=== PATIENT | female | born 1990 | race Caucasian/White ===

== ENCOUNTER 2018-12-20 18:13 | Emergency (ER) | payer OTHER, SELFPAY ==
[2018-12-20 18:14] VITALS: BP 133/83; PULSE 78; RESP 14; TEMP 36.9; O2SAT 100; BMI 23.3
--- NOTE | 2018-12-20 20:24 | ED.VIS.GEN ---
History of Present Illness Chief Complaint: Vag Bleeding Informant: Patient Onset: Month(s) - 1 Context: Gradual Onset Timing: Continuous Quality: like a menstrual cycle Location: pelvic Current Severity: Moderate Maximum Severity: Moderate Worsened by: nothing Relieved by: nothing Associated Symptoms: pelvic cramping, dizzy Narrative: Patient states she has a history of endometriosis that was seen on laparoscopy, she is scheduled to see her attic fans mechanic and have another laparoscopy she thinks, she has had bleeding for the past month and cramping during this as well, mild headaches off and on, no nausea or vomiting or loss of consciousness but she has increasingly become tired and lightheaded especially with standing. Lightheadedness is better when she sits or lies down. This occurred at work today and she was advised to come to the emergency department for evaluation. She denies bleeding from anywhere else. She has been eating and drinking well. - Past Medical History (1) Endometriosis Status: Chronic Past Medical History - Allergies and Home Meds Allergies/Adverse Reactions: Allergies No Known Allergies Allergy (Verified 12/20/18 18:16) Primary Care Physician: [facility] Doctor,Out of [NON-STAFF] - Smoking Status: Current every day smoker Drugs: None Review of Systems General: Reports: Malaise. Denies: Chills, Fever Eyes: Denies: Visual changes - bilaterally, Diplopia ENT: Denies: Rhinorrhea, Sore throat Cardiovascular: Denies: Chest pain, Palpitations, Heart racing Respiratory: Denies: Dyspnea, Cough, Dyspnea on exertion Gastrointestinal: Reports: Abdominal pain. Denies: Nausea, Vomiting, Diarrhea, Melena, Hematochezia Genitourinary: Reports: - - vaginal bleeding. Denies: Dysuria, Hematuria, Frequency Musculoskeletal: Reports: Back pain - low back when increased abd-pelv cramping. Denies: Neck pain, Extremity Pain Skin: Denies: Rash, Wounds Neurological: Denies: Headache, Weakness, Numbness Physical Exam Vital Signs/Narrative: Vital Signs Temp Pulse Resp BP Pulse Ox 12/20/18 18:14 98.5 F 78 14 133/83 H 100 Inital Vital Signs reviewed: Yes General: Well nourished, Well developed, No Acute Distress Head: Normocephalic, Atraumatic Eyes: Perrl, EOMI ENT: Moist mucous membranes, No rhinorrhea Neck: Supple, Nontender Cardiovascular: Regular rate, Regular rhythm, No murmurs. Negative for: Tachycardia Respiratory: No distress, CTA bilaterally, Chest nontender Abdomen: Soft, Nondistended, Normal bowel sounds, Tender - across pelvis, nonlateralizing. Negative for: Guarding, Rebound tenderness Back: Nontender, Normal Inspection. Negative for: CVA tenderness Extremities: Nontender, No edema Skin: Normal color, No rash, No Trauma Neurological: Alert, Oriented x3, Cranial nerves II-XII grossly intact, Normal Strength, Normal Sensation Diagnostic/Tx/Re-eval Laboratory Tests 12/20/18 12/20/18 12/20/18 Range/Units 20:37 20:37 20:37 WBC 6.5 (4.4-11.0) K/mm3 RBC 4.22 (4.2-5.4) M/mm3 Hgb 12.1 (12.0-15.0) g/dl Hct 36.5 L (37-47) % MCV 86.5 (81-99) fL MCH 28.7 (27.0-32.0) pg MCHC 33.2 (32-36) g/gl RDW 13.4 (11.6-14.6) % RDW Differential 42.3 (35.1-43.9) fl Plt Count 253 (150-450) K/mm3 MPV 9.6 (6.2-12.0) fl Sodium 139 (136-145) mmol/L Potassium 3.7 (3.5-5.1) mmol/L Chloride 106 (98-107) mmol/L Carbon Dioxide 27.0 (21.0-32.0) mmol/L Anion Gap 6 (5-15) BUN 8 (7-18) mg/dL Creatinine 0.63 (0.55-1.02) mg/dL Estim Creat Clear Calc 97.20 ml/min Est GFR (MDRD) Af Amer 146 (>60) mL/min Est GFR (MDRD) Non-Af 121 (>60) mL/min BUN/Creatinine Ratio 12.7 (10-20) RATIO Glucose 77 (74-106) mg/dL Calcium 8.7 (8.5-10.1) mg/dL Serum , Qual NEGATIVE Negative - Medical Decision Making Labs show reassuring blood counts. Her is negative. She has borderline positive orthostatics if she was given a liter of fluid, she is feeling well and stable, using her cell phone on reevaluation. Advised that if she has days of heavy bleeding she needs to drink more fluids. Discharged home in stable improved condition and advised to follow-up with her attic fans mechanic. ED Disposition - Plan for ED Patient: Disposition: Home or Assisted Living Diagnosis: Dysfunctional uterine bleeding, Endometriosis, Pelvic pain Instructions: ED Bleed Irregular Vaginal Referrals: [facility],Out of [NON-STAFF] - 5-7 Days (your attic fans mechanic)
--- NOTE | 2018-12-20 20:27 | ED.DCSUM_ITS ---
History of Present Illness Chief Complaint: Vag Bleeding Informant: Patient Onset: Month(s) - 1 Context: Gradual Onset Timing: Continuous Quality: like a menstrual cycle Location: pelvic Current Severity: Moderate Maximum Severity: Moderate Worsened by: nothing Relieved by: nothing Associated Symptoms: pelvic cramping, dizzy Narrative: Patient states she has a history of endometriosis that was seen on laparoscopy, she is scheduled to see her fruit dumper and have another laparoscopy she thinks, she has had bleeding for the past month and cramping during this as well, mild headaches off and on, no nausea or vomiting or loss of consciousness but she has increasingly become tired and lightheaded especially with standing. Lightheadedness is better when she sits or lies down. This occurred at work today and she was advised to come to the emergency department for evaluation. She denies bleeding from anywhere else. She has been eating and drinking well. - Past Medical History (1) Endometriosis Status: Chronic Past Medical History - Allergies and Home Meds Allergies/Adverse Reactions: Allergies No Known Allergies Allergy (Verified 12/20/18 18:16) Primary Care Physician: [facility] Doctor,Out of [NON-STAFF] - Smoking Status: Current every day smoker Drugs: None Review of Systems General: Reports: Malaise. Denies: Chills, Fever Eyes: Denies: Visual changes - bilaterally, Diplopia ENT: Denies: Rhinorrhea, Sore throat Cardiovascular: Denies: Chest pain, Palpitations, Heart racing Respiratory: Denies: Dyspnea, Cough, Dyspnea on exertion Gastrointestinal: Reports: Abdominal pain. Denies: Nausea, Vomiting, Diarrhea, Melena, Hematochezia Genitourinary: Reports: - - vaginal bleeding. Denies: Dysuria, Hematuria, Frequency Musculoskeletal: Reports: Back pain - low back when increased abd-pelv cramping. Denies: Neck pain, Extremity Pain Skin: Denies: Rash, Wounds Neurological: Denies: Headache, Weakness, Numbness Physical Exam Vital Signs/Narrative: Vital Signs Temp Pulse Resp BP Pulse Ox 12/20/18 18:14 98.5 F 78 14 133/83 H 100 Inital Vital Signs reviewed: Yes General: Well nourished, Well developed, No Acute Distress Head: Normocephalic, Atraumatic Eyes: Perrl, EOMI ENT: Moist mucous membranes, No rhinorrhea Neck: Supple, Nontender Cardiovascular: Regular rate, Regular rhythm, No murmurs. Negative for: Tachycardia Respiratory: No distress, CTA bilaterally, Chest nontender Abdomen: Soft, Nondistended, Normal bowel sounds, Tender - across pelvis, non lateralizing. Negative for: Guarding, Rebound tenderness Back: Nontender, Normal Inspection. Negative for: CVA tenderness Extremities: Nontender, No edema Skin: Normal color, No rash, No Trauma Neurological: Alert, Oriented x3, Cranial nerves II-XII grossly intact, Normal Strength, Normal Sensation Diagnostic/Tx/Re-eval Laboratory Tests 12/20/18 12/20/18 12/20/18 Range/Units 20:37 20:37 20:37 WBC 6.5 (4.4-11.0) K/mm3 RBC 4.22 (4.2-5.4) M/mm3 Hgb 12.1 (12.0-15.0) g/dl Hct 36.5 L (37-47) % MCV 86.5 (81-99) fL MCH 28.7 (27.0-32.0) pg MCHC 33.2 (32-36) g/gl RDW 13.4 (11.6-14.6) % RDW Differential 42.3 (35.1-43.9) fl Plt Count 253 (150-450) K/mm3 MPV 9.6 (6.2-12.0) fl Sodium 139 (136-145) mmol/L Potassium 3.7 (3.5-5.1) mmol/L Chloride 106 (98-107) mmol/L Carbon Dioxide 27.0 (21.0-32.0) mmol/L Anion Gap 6 (5-15) BUN 8 (7-18) mg/dL Creatinine 0.63 (0.55-1.02) mg/dL Estim Creat Clear Calc 97.20 ml/min Est GFR (MDRD) Af Amer 146 (>60) mL/min Est GFR (MDRD) Non-Af 121 (>60) mL/min BUN/Creatinine Ratio 12.7 (10-20) RATIO Glucose 77 (74-106) mg/dL Calcium 8.7 (8.5-10.1) mg/dL Serum , Qual NEGATIVE Negative - Medical Decision Making Labs show reassuring blood counts. Her is negative. She has borderline positive orthostatics if she was given a liter of fluid, she is feeling well and stable, using her cell phone on reevaluation. Advised that if she has days of heavy bleeding she needs to drink more fluids. Discharged home in stable improved condition and advised to follow-up with her fruit dumper. ED Disposition - Plan for ED Patient: Disposition: Home or Assisted Living Diagnosis: Dysfunctional uterine bleeding, Endometriosis, Pelvic pain Instructions: ED Bleed Irregular Vaginal Referrals: [facility],Out of [NON-STAFF] - 5-7 Days (your fruit dumper)
[2018-12-20 20:58] LABS: Hematocrit 36.5 % (37-47); Hemoglobin 12.1 g/dl (12.0-15.0); Mean Corp Hgb Conc 33.2 g/gl (32-36); Mean Corpuscular Hgb 28.7 pg (27.0-32.0); Mean Corpuscular Volume 86.5 fL (81-99); Mean Platelet Vol. 9.6 fl (6.2-12.0); Platelet Count 253 K/mm3 (150-450); RBC Distribution Width CV 13.4 % (11.6-14.6); RBC Distribution Width SD 42.3 fl (35.1-43.9); Red Blood Count 4.22 M/mm3 (4.2-5.4); White Blood Count 6.5 K/mm3 (4.4-11.0)
[2018-12-20 20:59] VITALS: BP 106/65; BP 107/79; BP 122/80; PULSE 56; PULSE 65; PULSE 81; RESP 17; O2SAT 100
[2018-12-20 20:59] LABS: Scan Indicated on CBC? Y/N NO
[2018-12-20 21:01] LABS: Internal QC Validated? YES +Cl - CLEAR BKGD; Pregnancy, Serum, hCG Quali. NEGATIVE Negative
[2018-12-20 21:06] LABS: Anion Gap 6 (5-15); BUN 8 mg/dL (7-18); BUN/Creat Ratio 12.7 RATIO (10-20); Calcium,Total 8.7 mg/dL (8.5-10.1); Chloride 106 mmol/L (98-107); Creatinine, Serum 0.63 mg/dL (0.55-1.02); EST Glomerular Filtration Rate 121 mL/min (>60); Est Glom Filt Rate - Afr Amer 146 mL/min (>60); Glucose 77 mg/dL (74-106); Potassium 3.7 mmol/L (3.5-5.1); Sodium Level 139 mmol/L (136-145)
[2018-12-20 22:31] VITALS: BP 112/78; PULSE 67; RESP 16; O2SAT 100
[2018-12-20 23:22] VITALS: BP 111/73; PULSE 64; RESP 16; O2SAT 100
== END 2018-12-20 23:25 | disposition home or self-care (01) ==
PROVIDERS: Emergency Provider Emergency Medicine
DX: N93.8 Other specified abnormal uterine and vaginal bleeding (principal); N80.9 Endometriosis, unspecified; R10.2 Pelvic and perineal pain; F17.200 Nicotine dependence, unspecified, uncomplicated
CPT/HCPCS: 80048; 84703; 85027; 96360; 99284; J7030; J7040

== ENCOUNTER 2019-01-10 14:49 | Emergency (ER) | payer OTHER, SELFPAY ==
[2019-01-10 14:49] VITALS: BP 134/85; PULSE 88; RESP 14; TEMP 36.5; O2SAT 96; BMI 22.6
--- NOTE | 2019-01-10 15:04 | CT_ITS ---
STUDY: CT ABDOMEN AND PELVIS WITHOUT CONTRAST REASON FOR EXAM: Female, 28 years old. Left flank pain RADIATION DOSAGE (If Supplied By Facility): CTDIvol = ( 6.52 ) mGy, DLP = ( 297.13 ) mGycm TECHNIQUE: Transaxial images were obtained from the dome of the diaphragm to the symphysis pubis without oral contrast, and without intravenous contrast. Sagittal and coronal images were reconstructed. Individualized dose optimization techniques were used for this CT. COMPARISON: None. FINDINGS: The visualized lung bases are unremarkable. The visualized portions of the heart are within normal limits. Normal liver. Normal gallbladder and extrahepatic biliary system. Normal spleen. Normal pancreas. Normal bilateral adrenal glands. Normal right kidney. Normal left kidney. Normal visualized stomach. Normal small intestine. Constipation The appendix is visualized and appears normal. Normal abdominal aorta. Normal inferior vena cava. Normal retroperitoneum. Normal urinary bladder. Cystic foci are present in the bilateral pelvis, measuring 30 x 18 mm on the right on image 119 of series 1002, and 26 x 22 mm on the left on the same image. These could be ovarian and/or adnexal in origin. Consider ultrasound follow-up if clinically indicated. Normal abdominal wall. Normal osseous structures. CT/Abdomen/Pelvis without Cont IMPRESSION: Indeterminate cystic structures in the bilateral pelvis could be of ovarian or adnexal origin. Consider ultrasound follow-up if clinically indicated. No evidence of acute intestinal pathology or acute obstructive uropathy. Electronically Signed: Iván Capps MD at 16:06 EDT Tel , Service support ,
--- NOTE | 2019-01-10 15:11 | ED.VISSUMM ---
- ER Visit Summary Date of Service: 01/10/19 Chief Complaint: Pain History of Present Illness: The patient is a 28 F with lower abdominal and left flank pain. The pain started today after sexual intercourse. Patient described the pain is crampy. It came on suddenly and was severe and it has eased up since. Associated with nausea. Patient reports a history of kidney stones with similar pain. Incidentally, she was treated recently for trichomonas. She does have 2 pills left. She said she missed a few doses. No history of abscess. No discharge. No bleeding. Not currently . History of endometriosis and ovarian cysts as well. No other complaints. Physical Examination: Afebrile and vital signs unremarkable. Patient is alert and oriented. Moving, sitting, speaking comfortably. Heart regular. Lungs clear. Abdomen is tender in the left lower quadrant and left pelvic region. No CVA tenderness. Skin appears normal. Test Results: Laboratory studies, urinalysis, hCG, and CT abdomen/pelvis pending. Emergency Department Course and Treatment: Patient treated with fluids, Toradol, and Zofran while awaiting results. CT showed bilateral ovarian adnexal cysts. Blood work all fairly unremarkable. test was negative. Urinalysis unremarkable. She did have a remote history of trichomonas and gonorrhea, so I did check a pelvic exam. This was chaperoned by the nurse. There is no discharge, bleeding, masses, or tenderness. Ultrasound was done and showed a complex right ovarian cyst measuring 2.6 cm and a simple left ovarian cyst measuring 1.3 cm. I do not believe this is a tubo-ovarian abscess. The patient is not septic. Her labs are reassuring. The imaging is reassuring and the exam is reassuring. Patient was advised to follow-up with her SINGLE ENDING MACHINE OPERATOR. Anti-inflammatories for pain. Discharge. Treatment Plan: As above Disposition: As above Impression: 1. Bilateral ovarian cysts This note was generated with [employer] dictation software. It may contain incorrect words, spelling, and punctuation that were not noted in review of the chart prior to signing ED Disposition - Plan for ED Patient: Referrals: Care Physician,No Primary [Primary Care Provider] -
[2019-01-10] MEDS: Ketorolac 30 MG/ML Syringe IV (15:25)
[2019-01-10] MEDS: 0.9% Normal Saline 1,000 ML 1000 ML IV (15:25)
[2019-01-10] MEDS: Ondansetron 4 MG/2 ML Vial IV (15:25)
[2019-01-10 15:27] LABS: Absolute Lymphocyte Count 1.96 X10^3/ul (0.83-4.51); Absolute Neutrophil Count 4.1 X10^3/uL (2.0-7.7); Basophil# 0.02 X10^3/uL; Basophil% 0.3 % (0-1); Eosinophil# 0.14 X10^3/uL; Hematocrit 39.8 % (37-47); Hemoglobin 13.2 g/dl (12.0-15.0); Lymphocyte # 1.96 X10^3/ul (4.0); Lymphocyte % 28.2 % (19-41); Mean Corp Hgb Conc 33.2 g/gl (32-36); Mean Corpuscular Hgb 28.5 pg (27.0-32.0); Mean Platelet Vol. 9.7 fl (6.2-12.0); Monocyte# 0.75 X10^3/uL; Monocyte% 10.8 % (0-10); Neutrophil # 4.06 X10^3/uL (2.7-7.7); Neutrophil % 58.6 % (47-70); Platelet Count 229 K/mm3 (150-450); RBC Distribution Width CV 13.3 % (11.6-14.6); RBC Distribution Width SD 41.8 fl (35.1-43.9); Red Blood Count 4.63 M/mm3 (4.2-5.4); White Blood Count 6.9 K/mm3 (4.4-11.0)
[2019-01-10 15:30] LABS: POSITIVE COUNT NO; POSITIVE DIFFERENTIAL NO; POSITIVE MORPHOLOGY NO
[2019-01-10 15:32] LABS: Mucous, Urine 0 SEEN /hpf (<or=2+); Red Blood Cells-Urine 0 SEEN /hpf (0-5); Squamous Epithelial Cells - UA 0 SEEN /hpf (5-10); White Blood Cells 0 SEEN /hpf (0-5)
[2019-01-10 15:40] LABS: Internal QC Validated? YES +Cl - CLEAR BKGD; Pregnancy, Urine Negative Negative
[2019-01-10 15:42] LABS: Anion Gap 3 (5-15); BUN 8 mg/dL (7-18); BUN/Creat Ratio 12.3 RATIO (10-20); Calcium,Total 8.9 mg/dL (8.5-10.1); Chloride 107 mmol/L (98-107); Creatinine, Serum 0.65 mg/dL (0.55-1.02); EST Glomerular Filtration Rate 116 mL/min (>60); Est Glom Filt Rate - Afr Amer 141 mL/min (>60); Estimated Creatinine Clearance 94.21 ml/min; Glucose 89 mg/dL (74-106); Potassium 4.3 mmol/L (3.5-5.1); Sodium Level 136 mmol/L (136-145)
[2019-01-10 15:46] LABS: Color, Urine Yellow (Yellow); Glucose, Dipstick Normal (Normal); Ketone-Dipstick Negative (Negative); Leukocyte Esterase-Dipstick 25 /ul (Negative); Nitrite-Dipstick Negative (Negative); Occult Blood-Urine Negative /ul (Negative); Protein-Dipstick Negative (Negative); Urine Bilirubin Dipstick Negative (Negative); Urine Clarity Clear (Clear); Urine Urobilinogen Normal (Normal)
[2019-01-10 15:55] LABS: Bacteria RARE /hpf (None Seen)
--- NOTE | 2019-01-10 16:18 | US_ITS ---
STUDY: ULTRASOUND OF THE FEMALE PELVIS - COMPLETE REASON FOR EXAM: Female, 28 years old. Lower pelvic pain and ovary cysts LMP: 11/18/2018 TECHNIQUE: Transvaginal TECHNICAL QUALITY: Adequate. COMPARISON: CT same day FINDINGS: The uterus is anteverted and is in a midline position. The uterus measures 8.3 x 5.3 x 3.8 cm. Normal uterine cervix. The endometrium measures 5 mm in thickness, and is hyperechoic. There is no demonstrated endometrial mass. There is no demonstrated myometrial mass. I.U.D. - The patient does not have an I.U.D. The right ovary is visualized. The right ovary measures 3.4 x 3.3 x 2.7 cm. Complex cyst measuring 2.6 x 2.2 x 1.6 cm. There is no visualized right adnexal mass or complex lesion. There is normal arterial and normal venous vascularity. The left ovary is visualized. The left ovary measures 3.7 x 3.0 x 2.5 cm. Simple cyst measuring 13 x 12 x 6 mm. There is no visualized left adnexal mass or complex lesion. There is normal arterial and normal venous vascularity. There is minimal fluid in the cul-de-sac. Polycystic ovary disease: No. US/Transvaginal Non- IMPRESSION: Complex right ovary cyst measuring up to 2.6 cm. Simple left ovary cyst measuring up to 13 mm. Mild free pelvic fluid. The uterus is unremarkable. Electronically Signed: Iván Capps MD at 17:52 EDT Tel , Service support ,
[2019-01-10] MEDS: Morphine 4 MG/ML Syringe IV (17:52)
--- NOTE | 2019-01-10 18:35 | ED.DEP ---
ED Disposition - Plan for ED Patient: Instructions: ED Cyst Ovarian Prescriptions: Naproxen [Naprosyn] 500 mg PO BID PRN #20 tab Additional Instructions: follow up with your OBGYN
[2019-01-10 18:43] LABS: Chlamydia Trachomatis by PCR Negative (Negative); Neisserai gonorrhoeae by PCR Negative (Negative); Probe Check PASS; Sample Adequacy Control PASS; Specimen Processing Control PASS
== END 2019-01-10 18:50 | disposition home or self-care (01) ==
LOC: ED 15:05
PROVIDERS: Emergency Provider Emergency Medicine
DX: N83.201 Unspecified ovarian cyst, right side (principal); N83.202 Unspecified ovarian cyst, left side; Z87.442 Personal history of urinary calculi; Z72.0 Tobacco use
CPT/HCPCS: 74176; 76830; 80048; 81001; 81025; 85025; 87210; 87491; 87591; 93976; 96361; 96374; 96375; 99283; J7030; A4216; J2405

== ENCOUNTER 2020-01-30 18:58 | Inpatient (IN) | payer MEDICAID, SELFPAY ==
[2020-01-30] VITALS (17 sets, daily range): BP systolic 110–125; BP diastolic 62–84; PULSE 64–96; TEMP 36.6–37; O2SAT 98–100; BMI 25.7
[2020-01-30] MEDS: Lactated Ringers 1,000 ML 50 ML IV (19:25)
[2020-01-30] MEDS: Oxytocin 30 units/NS 500 ml 30 UNITS/500 ML IV.SOLN IV (19:44)
[2020-01-30 19:49] LABS: Absolute Lymphocyte Count 1.92 X10^3/uL (0.83-4.51); Absolute Neutrophil Count 6.7 X10^3/uL (2.0-7.7); Basophil# 0.02 X10^3/uL; Basophil% 0.2 % (0-1); Eosinophil# 0.07 X10^3/uL; Eosinophils% 0.7 % (0-5); Hematocrit 28.3 % (37-47); Lymphocyte # 1.92 X10^3/ul (4.0); Lymphocyte % 20.1 % (19-41); Mean Corp Hgb Conc 31.8 g/dL (32-36); Mean Corpuscular Hgb 27.3 pg (27.0-32.0); Mean Corpuscular Volume 85.8 fL (81-99); Mean Platelet Vol. 10.7 fl (6.2-12.0); Monocyte# 0.83 X10^3/uL; Monocyte% 8.7 % (0-10); NRBC Flagged by Analyzer 0 % (0-5); Neutrophil # 6.66 X10^3/uL (2.7-7.7); Neutrophil % 69.7 % (47-70); Platelet Count 252 K/mm3 (150-450); RBC Distribution Width CV 13.5 % (11.6-14.6); RBC Distribution Width SD 41.5 fl (35.1-43.9); White Blood Count 9.6 K/mm3 (4.4-11.0)
[2020-01-30 21:23] LABS: Probe Check PASS; Specimen Processing Control PASS
[2020-01-30] MEDS: Lactated Ringers 500 ML 999 ML IV (22:11)
[2020-01-30] MEDS: fentaNYL-bupivacaine (epidural) 100 ML BAG EPIDURAL (23:02)
[2020-01-31] VITALS (29 sets, daily range): BP systolic 98–123; BP diastolic 55–79; PULSE 58–83; RESP 14–16; TEMP 36.3–37.1; O2SAT 92–100
[2020-01-31] MEDS: Lactated Ringers 1,000 ML 200 ML IV (02:56)
[2020-01-31] MEDS: fentaNYL-bupivacaine (epidural) 100 ML BAG EPIDURAL (03:14)
[2020-01-31] MEDS: Lactated Ringers 500 ML 999 ML IV (06:14)
[2020-01-31] MEDS: Oxytocin 30 units/NS 500 ml 30 UNITS/500 ML IV.SOLN 334 UNITS IV (07:00)
--- NOTE | 2020-01-31 07:34 | PCM.HP.OB ---
- Problem List (1) History of prior with SGA Status: Acute (2) Anemia affecting Status: Acute (3) Tobacco use disorder affecting , antepartum Status: Acute (4) Encounter for elective induction of labor Status: Acute History Date of Admission: 01/30/20 Final FREDERICK: 02/05/20 Final FREDERICK Source: US <20 weeks Gestational age: 39 Weeks and 2 Days History of this : This is a 29 year-old, G [6], P [3023], at 39 weeks 2 days gestational age. Presented to labor and delivery for term induction of labor. Allergies No Known Allergies Allergy (Verified 01/30/20 19:56) Home Medications: Home Medications Pnv No.95/Ferrous Fum/Folic AC [ Multivitamin Tablet] 1 ea PO DAILY 01/30/20 Smoking Status: Current every day smoker Alcohol: None Number of Fetus(es): 1 NST - FHR Rate Baby A Baseline: 130 Variability:: Moderate Accelerations:: 15 x 15 Decelerations:: Variable FHR Category:: Category II Uterine Activity:: every 2-3 minutes History Past Pregnancies: Past Pregnancies Delivery Date Name GA/ Weeks Outcome Route Wt Infant Sex Labor Length Anesthesia Delivery Location Provider FOB Labs: Mom's Labs & Results 01/30/20 01/30/20 01/30/20 19:25 19:25 20:08 WBC 9.6 RBC 3.30 L Hgb 9.0 L Hct 28.3 L MCV 85.8 MCH 27.3 MCHC 31.8 L RDW Std Deviation 41.5 RDW Coeff of Shaquille 13.5 Plt Count 252 MPV 10.7 Immature Gran % (Auto) 0.600 Neut % (Auto) 69.7 Lymph % (Auto) 20.1 Hardy % (Auto) 8.7 Eos % (Auto) 0.7 Baso % (Auto) 0.2 Absolute Neuts (auto) 6.7 Absolute Lymphs (auto) 1.92 Nucleated RBC % 0 COVID-19 (LIZZ) Not Detected Blood Type B POSITIVE Antibody Screen NEGATIVE Course Did the patient receive Yes care? Labs Blood Type: B RH: POSITIVE RPR/VDRL/Syphilis Nonreactive Rubella status Immune HbSAg Negative Date Done: 06/06/19 Chlamydia Negative Gonorrhea Negative HIV/AIDS Non-Reactive Group B Strep: Negative Current Obstetrical History Gestational Diabetes No Incompetent Cervix No Infertility No IUGR No Macrosomia No Hypertension/Pre-eclampsia No Placenta Previa/Abruption No PTL/PROM No Uterine anomaly No Oligohydramnios No Polyhydramnios No Multiple gestation No Past Medical History Asthma No Diabetes No Hypertension No Heart disease No Mitral valve prolapse No Neurologic/Seizure disorder/ No Migraines Kidney disease No Liver disease No Varicosities No Clotting disorders/Hx of DVT No Thyroid Dysfunction No Other medical diseases No Psychiatric disorders No Major trauma No Abnormal PAP smear No Sleep apnea No Mammogram in the last 2 years No Enter DETAILS of medical endometriosis laproscopy 5 years ago history Social History Marital Status: SINGLE Alleged father Henry Nam Hx Smoking Yes Smoking Status Current every day smoker Expected Infant Delivery Method: Spontaneous Vaginal Review of Systems Constitutional: Denies: Chills, Fever, Weight Change HEENT: Denies: Head Aches, Sinus Congestion, Sinus Drainage Cardiovascular: Denies: Chest Pain, Palpitations Respiratory: Denies: Cough, Shortness of breath at rest, Sputum production Physical Exam Vitals: Vital Signs Temp Pulse BP Pulse Ox 98.8 F 83 116/60 100 01/31/20 07:20 01/31/20 07:33 01/31/20 07:33 01/31/20 06:21 General: Alert, Oriented x3, Cooperative HEENT: Atraumatic, Normocephalic SOFTWARE TEST ENGINEER: Normal external genitalia Estimated gestational size: Appropriate for gestational size Presentation: Cephalic Cervix Dilation (cm): 9.5 Station: 0 Effacement (%): 100 Assessment/Plan All Active Problems History of prior with SGA (Acute) Anemia affecting (Acute) Tobacco use disorder affecting , antepartum (Acute) Encounter for elective induction of labor (Acute) This is a 29 year-old, G [6], P [3023], at 39 weeks 2 days gestational age. A: Elective Induction of Labor Category 2 P: 1) Admit to L&D 2) Routine labs. COVID-19 Rapid testing 3) Pitocin for induction 4) GBS negative 5) Anticipate vaginal 6) Dr.James wang physician and notified of patient status
--- NOTE | 2020-01-31 07:46 | PCM.OPRPT ---
Problem List (1) History of prior with SGA Status: Acute (2) Anemia affecting Status: Acute (3) Tobacco use disorder affecting , antepartum Status: Acute (4) Encounter for elective induction of labor Status: Acute (5) Vaginal delivery Status: Acute (6) Periurethral laceration, delivered, current hospitalization Status: Acute Vaginal Delivery Maternal Presentation: Elective Induction Method of Induction: Pitocin Amniotic Membrane Rupture Type: Spontaneous Amniotic Fluid Description: Clear Final FREDERICK: 02/05/20 Gestational age: 39 Weeks and 2 Days Date of Procedure: 01/31/20 Pre-Operative Diagnosis: Elective Induction of Labor Post-Operative Diagnosis: Vaginal Delivery Surgery/ Procedure Performed: Spontaneous Vaginal Delivery Type of Anesthesia: Epidural Description of Procedure: Progressed to complete dilation with variable decelerations down to low 90's with recovery to 130 after position changes. Epidural effective. of viable female over periurethral laceration. APGARS 8,9. head delivered with body forthcoming without delay. Mouth and nares suctioned for secretions. Cord clamped and cut by FOB after delayed clamping. Pitocin started for active 3rd stage management. Placenta delivered spontaneously intact, 3 vessel cord via caitlin. Perineum inspected and revealed periurethral laceration. Repaired with 3.0 vicryl, well approximated. Fundus firm and hemostasis achieved. EBL 200ml. Vaginal sweep completed by me. Sponge and instrument count correct. Mom and baby stable, family bonding well. notified of delivery. Presentation: Vertex Placental Delivery Description: Spontaneous Placenta Disposition: [facility] Cord Vessel Description: 3 Vessels Cord Entanglement: None Infant A gender: Female Episiotomy Description: None Laceration: Periurethral Extnsion/lac, 1st degree Medications given after delivery: IV Pitocin Complications: None
--- NOTE | 2020-01-31 14:13 | CASEMGMT ---
Social Work Assessment Labor and Delivery [place] Date/Time of Referral: 01/31/20, 10:15am Referred By: RN, on behalf of physician Date/Time of Intervention: 01/31/20, 2pm Reason for Referral: Depression, feeling down about prior abortions, questions about custody of other children History obtained from: KORTNEY Household Composition: KORTNEY Rogers, GEOVANNA Nam(have been together 1.5 years), and new baby Fernanda. They will live together in their apartment. Patients parent/guardian status: For this baby, Sue has custody. SW inquired about other children. Sue has three children, ages 8,5, and 4. GEOVANNA has a son. Sue states two of her other children are with their fathers, and one is being cared for by a family friend who is like an aunt. KORTNEY explains she used to use crack, and gave her kids to family members to care for them as she knew she could not. She explains Children's Services was involved in [facility], but it's been over three years since they were involved. She states she moved to [place] three years ago to live with her mom and step dad, and get away from people here, in the attempt to stop using crack. She states she is no longer using, and moved back here two years ago, has been clean over two years. She states did not go through any drug counseling, did some [facility]. KORTNEY states she can visit the kids whenever she wants, and has good relationships with the Dads and the family friend. Medical History: MOB: Anemia. Baby: Apgars at 1 and 5 minutes, 8 and 9. weight 2.524kg. Educational Status: Both KORTNEY and GEOVANNA finished high school and completed some college Financial status: Neither parent working at present, though they do not have financial concerns at present. Infant Supplies: They have all needed supplies including safe place for baby to sleep, clothes, diapers, car seat, bottles. Childcare/Caregivers: KORTNEY and GEOVANNA, and GEOVANNA's sister identified as a support as well as fathers of other children and the family friend caring for one of the children. Transportation: They have a car. Programs/Agencies involved: None at present. They will enroll in WIC if needed. Children's Services/Legal Issues: See above, as per MOB the children were not taken away, she willingly gave them up so she could get clean. As per MOB, there has been no Children's Services involved for three years. Behavioral Health Issues: MOB states did struggle with after the of her last child, Isaiah. She did go on Zoloft for two months but her physician abruptly stopped prescribing it, and she does not want to go through that again, does not want go go back on Zoloft again. Substance use History: MOB states used crack and has been clean for over two years. Drug Screens: MOB had negative screen in May of 2019. Meconium pending. No screen on MOB while here. Domestic Violence: MOB denies any concerns regarding safety or domestic violencs. Family/Social Stressors: MOB states she does not have a good relationship with her mother, and states her mother is here at present. This is the only stressor MOB identified. Support Systems: MOB states FOB's sister, fathers of the other children, and family friend caring for the one child as supports. Depression and Anxiety/Shaken Baby/Safe Sleeping: SW gave information and reviewed information on all of these topics. SW also gave MOB a list of counseling agencies in the area and a [facility] Resource list, highlighting [facility] as they have a 24 hour crisis line. Assessment: SW met w/MOB in room, FOB sleeping on couch while we spoke. MOB appropriate, answered all questions and was forthcoming will all information. MOB appropriate and attentive to baby in bassinet next to her. SW gave MOB information above and information on [facility] as well. SW explained that SW will need to call Children's Services based on the information she has given this SW. MOB states understanding why this is needed. SW explained will let her know what this SW learns when calls. SW called [facility], spoke w/Millie, she states they will not open a case unless the meconium were to come back positive. SW spoke w/KORTNEY again, explained to her that the baby will be tested and as long the baby tests negative, Children's Services will not open a case. MOB states understanding, and stated to SW that it will come back negative. Plan: Baby home w/MOB and FOB. SW to follow up w/Children's Services should meconium come back positive. Otherwise, no further needs anticipated. SUSANNE Cook
[2020-01-31] MEDS: Ibuprofen 600 MG Tablet PO ×2 (15:57→22:16)
[2020-01-31] MEDS: Acetaminophen 500 MG Tablet 1000 MG PO (19:47)
[2020-02-01 00:40] VITALS: BP 111/65; PULSE 67; RESP 16; TEMP 37.1
[2020-02-01 04:32] VITALS: BP 116/85; PULSE 76; RESP 16; TEMP 36.7
[2020-02-01] MEDS: Ibuprofen 600 MG Tablet PO (04:39)
[2020-02-01 06:19] LABS: Hematocrit 27.7 % (37-47); Hemoglobin 8.6 g/dL (12.0-15.0); Mean Corpuscular Volume 86.8 fL (81-99); Mean Platelet Vol. 10.8 fl (6.2-12.0); Platelet Count 221 K/mm3 (150-450); RBC Distribution Width CV 13.2 % (11.6-14.6); RBC Distribution Width SD 41.8 fl (35.1-43.9); Red Blood Count 3.19 M/mm3 (4.2-5.4); White Blood Count 9.5 K/mm3 (4.4-11.0)
[2020-02-01 08:13] VITALS: BP 115/78; PULSE 59
[2020-02-01 08:14] VITALS: BP 115/78; PULSE 59; RESP 18; TEMP 36.8
[2020-02-01] MEDS: Acetaminophen 500 MG Tablet 1000 MG PO (08:31)
--- NOTE | 2020-02-01 09:54 | NURSING ---
Sue expressed desire to change pediatricians. States I picked the one in [place] because that is where my two children who live in [place] go and I like her, but now I don't think it makes sense to drive all the way to [place]. RN gave information on the two blackener groups in [place]. Sue chose Dr. Yun at [facility]. Metabolic screening card edited.
--- NOTE | 2020-02-01 12:44 | PCM.PN.OB ---
Patient Problems: Active and Suspected Problems History of prior with SGA (Acute) Anemia affecting (Acute) Tobacco use disorder affecting , antepartum (Acute) Encounter for elective induction of labor (Acute) Vaginal delivery (Acute) Periurethral laceration, delivered, current hospitalization (Acute) Subjective: Doing well per patient and nursing staff. Ambulating and taking PO without difficulty. Voiding and passing flatus. Lochia normal. Planning D/C home today. - Physical Exam Vitals/I&O's: Vital Signs Temp Pulse Resp BP Pulse Ox 98.3 F 59 L 18 115/78 99 02/01/20 08:14 02/01/20 08:14 02/01/20 08:14 02/01/20 08:14 01/31/20 09:14 Oxygen Delivery Method Room Air Weight: 131 lb 9.6 oz Body Mass Index (BMI) 25.7 Intake and Output for Last 24 Hours 01/30/20 01/31/20 02/01/20 23:59 23:59 23:59 Intake Total 871.47 / 871.47 2648.40 / 2648.40 Output Total 100 / 100 1300 / 1300 Balance 771.47 / 771.47 1348.40 / 1348.40 General: Alert, Oriented x3, Cooperative HEENT: Atraumatic, Normocephalic Neck: Trachea Midline Lungs: Clear to auscultation, Normal air movement, No rhonchi, No wheeze Cardiovascular: Regular rate, Regular Rhythm, No murmurs Abdomen: Bowel Sounds Present, Soft - fundus firm 2 below U Extremities: No edema - Gifty's negative Psych/Mental Status: Normal Affect, Appropriate Laboratory Results 02/01/20 05:55: WBC 9.5, RBC 3.19 L, Hgb 8.6 L, Hct 27.7 L, MCV 86.8, MCH 27.0, MCHC 31.0 L, RDW Std Deviation 41.8, RDW Coeff of Shaquille 13.2, Plt Count 221, MPV 10.8 Current Medications Acetaminophen (Tylenol) 1,000 mg PO Q8H PRN PRN PRN Reason: Pain Score 1-10/10 Last Admin: 02/01/20 08:31 Dose: 1,000 mg Documented by: Bisacodyl (Dulcolax) 10 mg RECTAL UD PRN PRN Reason: If no BM Dibucaine (Dibucaine) 1 applic TOPICAL TID PRN PRN; Protocol PRN Reason: Discomfort Hydrocortisone (Hytone) 1 applic TOPICAL TID PRN PRN; Protocol PRN Reason: Discomfort Ibuprofen (Motrin) 600 mg PO Q6H PRN PRN PRN Reason: Pain Score 1-10/10 Last Admin: 02/01/20 04:39 Dose: 600 mg Documented by: Methylergonovine Maleate (Methergine) 0.2 mg IM X1 PRN PRN Reason: Excess bleeding/uterine atony Ondansetron HCl (Zofran) 4 mg IV Q4H PRN PRN PRN Reason: Nausea Senna/Docusate Sodium (Senokot-S, Heather-Colace) 1 - 2 tablet PO DAILY PRN PRN PRN Reason: Constipation Simethicone (Mylicon) 80 mg PO PCHS PRN PRN Reason: Indigestion/Stomach pain Sodium Chloride () 5 - 15 ml IV UD PRN PRN Reason: SALINE FLUSH Medical Necessity - Tobacco Use Smoking Status: Current every day smoker Assessment/Plan All Active Problems History of prior with SGA (Acute) Anemia affecting (Acute) Tobacco use disorder affecting , antepartum (Acute) Encounter for elective induction of labor (Acute) Vaginal delivery (Acute) Periurethral laceration, delivered, current hospitalization (Acute) A:PPD #1 Periurethral laceration P: 1) Routine instructions 2) Follow up in 2 weeks and 6 weeks 3) Anemia, stable and asymptomatic. Ferrous sulfate 325mg PO BID 4) D/C home today
--- NOTE | 2020-02-01 12:47 | DCINST_ITS ---
Discharge Diet: No Restrictions Discharge Activity: Return to Normal Activity, May not drive while taking narcotic pain medications., May Shower May resume sexual activity in: 4-6 weeks Weight Bearing Status: Full weight bearing Additional Activity Instructions:: Nothing in the vagina for 4-6 weeks. You may return to work/school in 6 weeks. Call your doctor if your incision/area has: Continuous Slow Oozing, Sudden Increased Bleeding, Increased Pain/ Swelling, Increased Redness, Foul Smelling Discharge Call your doctor if you observe: Fever of 101 or Higher Additional Instructions: If you experience any of the following, contact your healthcare provider. * Bleeding that soaks a pad every hour for 2 hours * Fever 100.4 or higher * Unrelieved incision or abdominal pain * Swelling, redness, discharge or bleeding from your incision or episiotomy site * Your incision begins to separate * Problems urinating (including inability to urinate or burning while ur inating). * Visual changes * Severe headache * Flu-like symptoms * Pain or redness in one of both of your breasts * Pain, warmth, tenderness or swelling in your legs, especially the calf area * Frequent nausea and vomiting * Symptoms of depression or anxiety If you experience any of the following, call 911 or go to the nearest Emergency Room. * Chest pain * Problems breathing * Seizure activity * Partial or complete paralysis of a body part, slurred speech, weakness or drooping of the face, or a sudden inability to walk or hold your balance Allergies/Adverse Reactions: Allergies No Known Allergies Allergy (Verified 01/30/20 19:56) Medications to take at Discharge Pnv No.95/Ferrous Fum/Folic AC [ Multivitamin Tablet] 1 ea PO DAILY 01/30/20 Ferrous Sulfate 325 mg PO BID 30 Days #60 tab 02/01/20 The following prescriptions were given: Ferrous Sulfate 325 mg PO BID 30 Days #60 tab Transmission Status: Pending to [facility] #30 Please Follow Up With: Laura Amato CNM When: Call to make an appointment with your doctor in 2 weeks virtual visit and 6 weeks. If you had elevated Blood Pressure or 4th degree laceration you will need to be seen in 2 weeks. Primary Care Physician: Care Physician,No Primary [Primary Care Provider] - Test Results: Test results from this visit will be discussed in further detail at your follow- up appointment, if applicable.
[2020-02-01 13:00] VITALS: BP 123/90; PULSE 85
[2020-02-01 13:30] VITALS: BP 123/90; PULSE 85; RESP 18; TEMP 36.8
== END 2020-02-01 13:20 | disposition home or self-care (01) | DRG 560 ==
PROVIDERS: Obstetrics & Gynecology; Admitting Provider Advanced Practice Midwife; Visit Provider Advanced Practice Midwife
DX: O76 Abnormality in fetal heart rate and rhythm complicating labor and delivery (principal); Z37.0 Single live birth; Z3A.39 39 weeks gestation of pregnancy; F17.200 Nicotine dependence, unspecified, uncomplicated; O99.334 Smoking (tobacco) complicating childbirth; D64.9 Anemia, unspecified; O99.02 Anemia complicating childbirth; O70.0 First degree perineal laceration during delivery
CPT/HCPCS: 59025; 59050; 85025; 85027; 86850; 86900; 86901; 87635; 99218; G2023; J7120; G0378; U0003

== ENCOUNTER 2022-01-14 10:23 | Emergency (ER) | payer MEDICAID, SELFPAY ==
[2022-01-14 10:24] VITALS: BP 134/91; PULSE 100; RESP 16; TEMP 36.9; O2SAT 97; BMI 23.4
--- NOTE | 2022-01-14 10:35 | CT_ITS ---
STUDY: CT ABDOMEN AND PELVIS WITHOUT CONTRAST REASON FOR EXAM: Female, 31 years old. right flank pain RADIATION DOSAGE (If Supplied By Facility): CTDIvol = ( 6.04 ) mGy, DLP = ( 283.89 ) mGycm TECHNIQUE: Transaxial images were obtained from the dome of the diaphragm to the symphysis pubis without oral contrast, and without intravenous contrast. Sagittal and coronal images were reconstructed. Individualized dose optimization techniques were used for this CT. COMPARISON: None. FINDINGS: The visualized lung bases are unremarkable. The visualized portions of the heart are within normal limits. Normal liver. Normal gallbladder and extrahepatic biliary system. Normal spleen. Normal pancreas. Normal bilateral adrenal glands. Normal right kidney. Normal left kidney. Normal visualized stomach. Normal small intestine. Moderate stool throughout the colon consistent with fecal stasis. The appendix is visualized and appears normal. Normal abdominal aorta. Normal inferior vena cava. Normal retroperitoneum. Normal urinary bladder. Normal abdominal wall. Normal osseous structures. There are bilateral pelvic calcifications consistent with phleboliths. The possibility of distal ureteral calculus is considered unlikely but cannot be completely excluded. CT/Abdomen/Pelvis without Cont IMPRESSION: 1. Kidneys, ureters, and urinary bladder are normal. Specifically there is no evidence of tract calculi and no evidence of hydronephrosis. 2. Fecal stasis. Electronically Signed: Jerardo Velasquez MD at 11:30 EDT ,
--- NOTE | 2022-01-14 10:36 | EDS_ITS ---
HPI History of Present Illness Chief Complaint: Flank Pain Detail of Chief Complaint: Right flank pain that started 6 days ago Informant: patient Narrative Narrative: Patient presents to the emergency department complaint of right-sided flank pain that started 6 days ago. She describes continuous pain. Pain intermittently will radiate to the right lower abdomen. Patient states that she has had kidney stones in the past and feels like that. Patient also complaining of some dysuria and foul odor to urine. She is had nausea but no vomiting. Currently rates her pain a 7 out of 10. She denies any injury to her back. She did not denies any pain rating down her leg. Patient's last menstrual period was January 02. Patient is G6, P4. Prior similar symptoms: Yes PFSH PFSH Home Medications PNV cmb#95-ferrous fumarate-FA 1 ea PO DAILY 01/30/20 [History Last Taken 01/16/20 09:00 1 tablet] phenazopyridine [Pyridium] 200 mg PO TID #6 tab 01/14/22 [Rx Last Taken Unknown] sulfamethoxazole-trimethoprim 1 tab PO BID #14 tablet 01/14/22 [Rx Last Taken Unknown] Allergy/AdvReac Type Severity Reaction Status Date / Time No Known Allergies Allergy Verified 01/14/22 10:26 Social History Smoking Status: Current every day smoker tobacco type: e-cigarettes ROS ROS ED Constitutional Constitutional ED: Reports systems reviewed and no addt'l complaints, except as documented; Denies body ache(s), change in weight or chills Eyes Eyes: Denies acute decrease in peripheral vision, change in vision, double vision or loss of vision ENT ENT ED: Reports none; Denies ear pain, lip swelling, loss taste/smell, neck pain, otalgia or sore throat Cardiovascular Cardiovascular: Reports none; Denies abdominal pain, chest pain with activity, leg edema, lightheadedness, palpitations, rapid heart rate or syncope Respiratory/Chest Respiratory/Chest: Reports none; Denies change in mental status, dry cough, dyspnea, hemoptysis, shortness of breath at rest or shortness of breath with exertion Gastrointestinal Gastrointestinal: Reports none; Denies abdominal pain, change in stool character, diarrhea, hematemesis, hematochezia, melena, rectal bleeding or vomiting Genitourinary Genitourinary ED: Reports none and dysuria; Denies abdominal discomfort, anuria, genital pain or polyuria Musculoskeletal Musculoskeletal: Reports none and back pain; Denies arthralgias, difficulty walking, extremity pain, muscle weakness or myalgias Integumentary Reports none; Denies abscess or rash Neurologic Neurologic: Reports none; Denies abnormal gait, confusion, focal weakness, frequent falls, headache(s), loss of vision, numbness, paresthesias, radicular pain, vertigo or weakness Psychiatric Psychiatric: Reports systems reviewed and no addt'l complaints, except as documented and none; Denies behavioral changes, confusion, difficulty concentrating, hallucinations, suicidal ideation, tactile hallucinations or visual hallucinations Endocrine Endocrinology: Denies none, cold intolerance, excessive sweating, fatigue or heat intolerance Hematologic/Lymphatic Hematologic/Lymphatic: Reports none; Denies anemia, easy bleeding or easy bruising Allergic/Immunologic Allergic/Immunologic ED: Denies as per HPI, none, lip swelling, mouth swelling, throat swelling, tongue swelling or hives EXAM Physical Exam Const Vital Signs: 01/14/22 10:24 01/14/22 10:32 Temperature 98.5 F Temperature Source Temporal Pulse Rate 100 Respiratory Rate 16 Respiratory Effort Normal Respiratory Pattern Normal Blood Pressure 134/91 H Blood Pressure Mean 105 Pulse Ox 97 Oxygen Delivery Method Room Air Positive well nourished and well developed General Appearance ED: well developed and NAD HEENT Reports TM's clear and moist mucous membranes normocephalic and atraumatic; Negative for trauma or tenderness Tympanic Membrane ED: Yes TM's clear Eyes PERRL and EOMs intact bilaterally General Eye ED: Negative for pale conjunctiva or scleral icterus Neck no lymphadenopathy, supple and no JVD General: Negative for tenderness Chest Wall inspection of chest normal and palpation of chest normal Chest: Negative for tenderness Resp normal respiratory effort and clear to auscultation bilaterally Effort and Inspection: Negative for respiratory distress or pain with movement Auscultation: Negative for rhonchi, wheezes or diminished lung sounds Cardio regular rate, regular rhythm, S1 normal heart sound, S2 normal heart sound and no murmurs Peripheral Pulses: pulses 2+ throughout GI normal to inspection, nondistended, normoactive bowel sounds, soft to palpation, non-distended and no masses GI Narrative: Mild tenderness over the suprapubic region. No rebound, rigidity, or peritoneal signs. Back/Spine no thoracic nor lumbar tenderness Back/Spine Narrative: Patient with CVA tenderness on the right Extremity normal to inspection General Extremety ED: Negative for edema General Extremity: Negative for edema Neuro oriented x3, CN's II-XII intact bilaterally, no sensory deficits noted and gait normal Sensorium / Orientation: awake, alert, oriented to person, oriented to place and oriented to time Motor Exam: strength 5/5 throughout and strength abnormal Psych mental status grossly normal Skin no rashes or lesions noted and no wounds MDM MDM MDM Narrative Medical decision making narrative: Established on arrival. Patient was given Toradol IV. Lab work-up was unremarkable. Urine was positive for nitrites as well as 5-10 WBCs and +3 bacteria. Urine hCG was negative. This point I suspect likely UTI as the etiology of her symptoms. Patient will be started on Bactrim and Pyridium. She is to use ibuprofen or Tylenol for discomfort. Patient to follow-up with her primary care physician in 3 to 5 days. Patient to return if worsening pain, fever, vomiting, or condition should worsen anyway. Lab Data Attestation: I reviewed the patient's lab results. Labs: Laboratory Results - last 24 hr 01/14/22 01/14/22 01/14/22 10:30 10:45 10:45 WBC 9.8 RBC 4.39 Hgb 12.6 Hct 38.1 MCV 86.8 MCH 28.7 MCHC 33.1 RDW Std Deviation 46.3 H RDW Coeff of Shaquille 14.4 Plt Count 258 MPV 9.5 Immature Gran % (Auto) 0.300 Neut % (Auto) 80.0 H Lymph % (Auto) 8.7 L Gates % (Auto) 9.4 Eos % (Auto) 1.4 Baso % (Auto) 0.2 Absolute Neuts (auto) 7.8 H Absolute Lymphs (auto) 0.85 Nucleated RBC % 0 Sodium 136 Potassium 3.7 Chloride 105 Carbon Dioxide 25.0 Anion Gap 6 BUN 8 Creatinine 0.81 Estim Creat Clear Calc 73.61 Est GFR (MDRD) Af Amer 108 Est GFR (MDRD) Non-Af 89 BUN/Creatinine Ratio 9.9 L Glucose 117 H Calcium 9.3 Urine Color Yellow Urine Clarity Clear Urine pH 7.0 Ur Specific [place] 1.010 Urine Protein 15 H Urine Glucose (UA) Normal Urine Ketones Negative Urine Occult Blood 10 H Urine Nitrite Positive H Urine Bilirubin Negative Urine Urobilinogen Normal Ur Leukocyte Esterase 25 H Urine RBC 0 SEEN Urine WBC 5-10 SEEN Ur Squamous Epith Cells 0-5 SEEN Urine Bacteria 3+ Urine Mucus 0 SEEN Urine Test Negative Radiography Diagnostic Testing: Clinical Impression(s) from Imaging Studies Abdomen/Pelvis CT 01/14/22 10:35 IMPRESSION: 1. Kidneys, ureters, and urinary bladder are normal. Specifically there is no evidence of tract calculi and no evidence of hydronephrosis. 2. Fecal stasis. Electronically Signed: Jerardo Velasquez MD at 11:30 EDT , Discharge Plan Triage Chief Complaint: Flank Pain ED Provider: Anamaria Silverio Dx/Rx/DC Orders Clinical Impression: Urinary tract infection Instructions: ED CYSTITIS Female Adult Prescriptions: New sulfamethoxazole-trimethoprim [sulfamethoxazole-trimethoprim] 1 TABLET tablet 1 tab PO BID Qty: 14 RF: 0 phenazopyridine [Pyridium] 200 mg tablet 200 mg PO TID Qty: 6 RF: 0 No Action PNV cmb#95-ferrous fumarate-FA 1 EACH tablet 1 ea PO DAILY RF: 0 Primary Care Provider: Care Physician,No Primary Referrals: Saida Shah MD [STAFF PHYSICIAN] - 3-5 Days Care Physician,No Primary [Primary Care Provider] - Disposition Disposition: Home, Self Care
[2022-01-14 10:43] LABS: Mucous, Urine 0 SEEN /hpf (<or=2+); Red Blood Cells-Urine 0 SEEN /hpf (0-5)
[2022-01-14] MEDS: Ketorolac 30 MG/ML Syringe IV (10:51)
[2022-01-14] MEDS: 0.9% Normal Saline 1,000 ML 150 ML IV (10:51)
[2022-01-14 10:52] LABS: Color, Urine Yellow (Yellow); Glucose, Dipstick Normal (Normal); Ketone-Dipstick Negative (Negative); Leukocyte Esterase-Dipstick 25 /ul (Negative); Nitrite-Dipstick Positive (Negative); Occult Blood-Urine 10 /ul (Negative); Protein-Dipstick 15 mg/dl (Negative); Urine Bilirubin Dipstick Negative (Negative); Urine Clarity Clear (Clear); Urine Urobilinogen Normal (Normal)
[2022-01-14 10:59] LABS: Absolute Lymphocyte Count 0.85 X10^3/uL (0.83-4.51); Absolute Neutrophil Count 7.8 X10^3/uL (2.0-7.7); Basophil# 0.02 X10^3/uL; Basophil% 0.2 % (0-1); Eosinophil# 0.14 X10^3/uL; Eosinophils% 1.4 % (0-5); Hematocrit 38.1 % (37-47); Hemoglobin 12.6 g/dL (12.0-15.0); Lymphocyte # 0.85 X10^3/ul (0.83-4.51); Lymphocyte % 8.7 % (19-41); Mean Corp Hgb Conc 33.1 g/dL (32-36); Mean Corpuscular Hgb 28.7 pg (27.0-32.0); Mean Corpuscular Volume 86.8 fL (81-99); Mean Platelet Vol. 9.5 fl (6.2-12.0); Monocyte# 0.92 X10^3/uL; Monocyte% 9.4 % (0-10); NRBC Flagged by Analyzer 0 % (0-5); Neutrophil # 7.84 X10^3/uL (2.7-7.7); Platelet Count 258 K/mm3 (150-450); RBC Distribution Width CV 14.4 % (11.6-14.6); RBC Distribution Width SD 46.3 fl (35.1-43.9); Red Blood Count 4.39 M/mm3 (4.2-5.4); White Blood Count 9.8 K/mm3 (4.4-11.0)
[2022-01-14 11:01] LABS: Bacteria 3+ /hpf (None Seen); Internal QC Validated? YES +Cl - CLEAR BKGD; Pregnancy, Urine Negative Negative; Squamous Epithelial Cells - UA 0-5 SEEN /hpf (5-10); White Blood Cells 5-10 SEEN /hpf (0-5)
[2022-01-14 11:07] LABS: Anion Gap 6 (5-15); BUN 8 mg/dL (7-18); BUN/Creat Ratio 9.9 RATIO (10-20); Calcium,Total 9.3 mg/dL (8.5-10.1); Chloride 105 mmol/L (98-107); Creatinine, Serum 0.81 mg/dL (0.55-1.02); EST Glomerular Filtration Rate 89 mL/min (>60); Est Glom Filt Rate - Afr Amer 108 mL/min (>60); Estimated Creatinine Clearance 73.61 ml/min; Glucose 117 mg/dL (74-106); Potassium 3.7 mmol/L (3.5-5.1); Sodium Level 136 mmol/L (136-145)
[2022-01-14] MEDS: Phenazopyridine 95 MG Tablet 190 MG PO (11:41)
[2022-01-14] MEDS: Smz/Tmp Ds Tablet 1 TABLET PO (11:41)
== END 2022-01-14 11:46 | disposition home or self-care (01) ==
PROVIDERS: Emergency Provider Emergency Medicine; Visit Provider Emergency Medicine
DX: N39.0 Urinary tract infection, site not specified (principal); F17.290 Nicotine dependence, other tobacco product, uncomplicated; Z87.442 Personal history of urinary calculi
CPT/HCPCS: 74176; 80048; 81001; 81025; 85025; 96361; 96374; 99284; J7030; A4216

== ENCOUNTER 2022-06-10 18:50 | Emergency (ER) | payer MEDICAID, SELFPAY ==
[2022-06-10 18:50] VITALS: BP 123/85; PULSE 90; RESP 16; TEMP 36.2; O2SAT 99; BMI 23.4
--- NOTE | 2022-06-10 19:05 | EDS_ITS ---
HPI HPI - GI History of Present Illness Chief Complaint: Abd Pain Informant: patient Abdominal Pain/Flank Pain Onset: Today Context: Gradual Onset Timing: Continuous and Waxes and wanes Quality: Aching, Dull and Sharp Location: RUQ, RLQ and Right Flank Worsened by: Nothing Relieved by: Nothing Nausea/Vomiting/Emesis GI Symptom: Negative for Nausea or Vomiting Diarrhea/Melena/Hematochezia GI Symptom: Negative for Diarrhea, Melena or Hematochezia Associated Symptoms Associated Symptoms: Positive for Frequency; Negative for Dysuria or Hematuria Narrative Narrative: Patient presents with right flank and abdominal pain that began today. Patient states it is gradually getting worse. Patient states that has been waxing and waning throughout the day today. Patient states it is localized to the right side of her abdomen and right flank area. Patient admits to some urinary frequency but denies any dysuria or hematuria. Patient states nothing makes her pain better nothing makes it worse. Patient admits to nausea but denies any vomiting. Patient denies any diarrhea, melena, or hematochezia. Patient states her last menstrual period was 05/20/2022. PFSH PFSH Medical History no medical history no medical history Home Medications vit no.95-ferrous fumarate 28 mg-folic acid 800 mcg tablet 1 ea PO DAILY 01/30/20 [History Last Taken 01/16/20 09:00 1 tablet] phenazopyridine 200 mg tablet (Pyridium) 200 mg PO TID 6 doses #6 tabs 01/14/22 [Rx Last Taken Unknown] sulfamethoxazole 800 mg-trimethoprim 160 mg tablet 1 tab PO BID #14 TABLETS 01/14/22 [Rx Last Taken Unknown] ciprofloxacin HCl 500 mg tablet 500 mg PO BID #14 TABLETS 06/10/22 [Rx Last Taken Unknown] Allergy/AdvReac Type Severity Reaction Status Date / Time No Known Allergies Allergy Verified 06/10/22 18:52 Surgical History (Updated 06/10/22 @ 19:[address] Mars Hughes DO) Hx of laparoscopy Social History Smoking Status: Current every day smoker tobacco type: e-cigarettes ROS ROS ED Constitutional Constitutional ED: Denies chills or fever(s) Eyes Eyes: Denies blurry vision or change in vision ENT ENT ED: Denies rhinorrhea or sore throat Cardiovascular Cardiovascular: Denies chest pain or palpitations Respiratory/Chest Respiratory/Chest: Denies cough or dyspnea Gastrointestinal Gastrointestinal: Reports abdominal pain and nausea; Denies vomiting Genitourinary Genitourinary ED: Reports urinary frequency; Denies dysuria or hematuria Musculoskeletal Musculoskeletal: Reports back pain; Denies neck pain Integumentary Denies abscess or rash Neurologic Neurologic: Reports headache(s) and weakness Allergic/Immunologic Allergic/Immunologic ED: Denies mouth swelling or urticaria EXAM Physical Exam Const Vital Signs: 06/10/22 18:50 Temperature 97.1 F L Temperature Source Temporal Pulse Rate 90 Respiratory Rate 16 Blood Pressure 123/85 H Blood Pressure Mean 97 Pulse Ox 99 Oxygen Delivery Method Room Air Positive well nourished and well developed General Appearance ED: well developed HEENT Reports moist mucous membranes Neck supple and no JVD Resp normal respiratory effort and clear to auscultation bilaterally Cardio regular rate, regular rhythm and no murmurs GI normal to inspection, nondistended, normoactive bowel sounds Palpation: soft and tender RLQ and RUQ; Negative for guarding or rebound tenderness present Back/Spine General Back: CVA tenderness right Extremity normal to inspection General Extremety ED: Negative for edema or tenderness General Extremity: Negative for edema Neuro oriented x3, CN's II-XII intact bilaterally and no sensory deficits noted Sensorium / Orientation: alert Motor Exam: strength 5/5 throughout Psych mental status grossly normal Skin no rashes or lesions noted MDM MDM MDM Narrative Medical decision making narrative: Patient was given IV fluids, morphine, and Zofran. CBC was within normal limits. Comprehensive metabolic profile was within normal limits. Serum hCG was negative. CT scan of the abdomen pelvis was obtained. There is no ureteral or renal calculus. There is no evidence of pyelonephritis. This was interpreted by the radiologist and reviewed by myself. Urinalysis shows a leukocyte esterases of 500 with 50-100 white blood cells. There is 2+ bacteria. Urine culture was ordered. Patient was given a dose of Cipro here. Patient was given a prescription for Cipro. Patient was instructed to drink plenty of fluids. Patient was instructed to follow-up with her primary care physician in 5 to 7 days. Patient understood and was agreeable with the plan. All questions were answered. Lab Data Attestation: I reviewed the patient's lab results. Labs: Laboratory Results - last 24 hr 06/10/22 06/10/22 06/10/22 19:33 19:33 19:33 WBC 11.0 RBC 4.34 Hgb 12.2 Hct 38.0 MCV 87.6 MCH 28.1 MCHC 32.1 RDW Std Deviation 48.5 H RDW Coeff of Shaquille 15.1 H Plt Count 262 MPV 9.3 Immature Gran % (Auto) 0.500 Neut % (Auto) 78.2 H Lymph % (Auto) 13.0 L [place] % (Auto) 6.7 Eos % (Auto) 1.2 Baso % (Auto) 0.4 Absolute Neuts (auto) 8.6 H Absolute Lymphs (auto) 1.43 Nucleated RBC % 0 Sodium 138 Potassium 4.0 Chloride 108 H Carbon Dioxide 24.0 Anion Gap 6 BUN 12 Creatinine 0.70 Estim Creat Clear Calc 84.41 Est GFR (MDRD) Af Amer 127 Est GFR (MDRD) Non-Af 105 BUN/Creatinine Ratio 17.2 Glucose 100 Calcium 8.9 Total Bilirubin 0.50 AST 13 L ALT 20 Alkaline Phosphatase 54 Total Protein 8.0 Albumin 3.8 Globulin 4.2 Albumin/Globulin Ratio 0.9 Lipase 85 Serum , Qual NEGATIVE Urine Color Urine Clarity Urine pH Ur Specific [place] Urine Protein Urine Glucose (UA) Urine Ketones Urine Occult Blood Urine Nitrite Urine Bilirubin Urine Urobilinogen Ur Leukocyte Esterase Urine RBC Urine WBC Ur Squamous Epith Cells Urine Bacteria Urine Mucus 06/10/22 20:20 WBC RBC Hgb Hct MCV MCH MCHC RDW Std Deviation RDW Coeff of [place] Plt Count MPV Immature Gran % (Auto) Neut % (Auto) Lymph % (Auto) [place] % (Auto) Eos % (Auto) Baso % (Auto) Absolute Neuts (auto) Absolute Lymphs (auto) Nucleated RBC % Sodium Potassium Chloride Carbon Dioxide Anion Gap BUN Creatinine Estim Creat Clear Calc Est GFR (MDRD) Af Amer Est GFR (MDRD) Non-Af BUN/Creatinine Ratio Glucose Calcium Total Bilirubin AST ALT Alkaline Phosphatase Total Protein Albumin Globulin Albumin/Globulin Ratio Lipase Serum , Qual Urine Color Yellow Urine Clarity Cloudy Urine pH 6.0 Ur Specific [place] 1.025 Urine Protein 100 H Urine Glucose (UA) Normal Urine Ketones 5 H Urine Occult Blood 250 H Urine Nitrite Positive H Urine Bilirubin Negative Urine Urobilinogen Normal Ur Leukocyte Esterase 500 H Urine RBC 0 SEEN Urine WBC 50-100 SEEN Ur Squamous Epith Cells 0 SEEN Urine Bacteria 2+ Urine Mucus 0 SEEN Radiography Diagnostic Testing: Clinical Impression(s) from Imaging Studies Abdomen/Pelvis CT 06/10/22 20:05 IMPRESSION: No renal or ureteral stone. Electronically Signed: Nile Pena MD at 20:24 EDT , Discharge Plan Triage Chief Complaint: Abd Pain ED Provider: Mars Hughes Dx/Rx/DC Orders Clinical Impression: Urinary tract infection, Right flank pain Instructions: ED Cystitis Female Adult Prescriptions: New ciprofloxacin HCl [ciprofloxacin HCl] 500 MG tablet 500 mg PO BID Qty: 14 0RF Continued phenazopyridine [Pyridium] 200 mg tablet 200 mg PO TID Qty: 6 0RF No Action PNV cmb#95-ferrous fumarate-FA 1 EACH tablet 1 ea PO DAILY sulfamethoxazole-trimethoprim [sulfamethoxazole-trimethoprim] 1 TABLET tablet 1 tab PO BID Qty: 14 0RF Primary Care Provider: Care Physician,No Primary Referrals: Jerardo Barney DO [Med Staff - Floor Nurse] - 5-7 Days Care Physician,No Primary [Primary Care Provider] - Disposition Disposition: Home, Self Care
[2022-06-10] MEDS: 0.9% Normal Saline 1,000 ML 1000 ML IV (19:26)
[2022-06-10] MEDS: Ondansetron 4 MG/2 ML Vial IV (19:27)
[2022-06-10] MEDS: Morphine 4 MG/ML Syringe IV (19:27)
[2022-06-10 19:39] LABS: Absolute Lymphocyte Count 1.43 X10^3/uL (0.83-4.51); Absolute Neutrophil Count 8.6 X10^3/uL (2.0-7.7); Basophil# 0.04 X10^3/uL; Basophil% 0.4 % (0-1); Eosinophil# 0.13 X10^3/uL; Eosinophils% 1.2 % (0-5); Hemoglobin 12.2 g/dL (12.0-15.0); Lymphocyte # 1.43 X10^3/ul (0.83-4.51); Mean Corp Hgb Conc 32.1 g/dL (32-36); Mean Corpuscular Hgb 28.1 pg (27.0-32.0); Mean Corpuscular Volume 87.6 fL (81-99); Mean Platelet Vol. 9.3 fl (6.2-12.0); Monocyte# 0.74 X10^3/uL; Monocyte% 6.7 % (0-10); NRBC Flagged by Analyzer 0 % (0-5); Neutrophil # 8.59 X10^3/uL (2.7-7.7); Neutrophil % 78.2 % (47-70); Platelet Count 262 K/mm3 (150-450); RBC Distribution Width CV 15.1 % (11.6-14.6); RBC Distribution Width SD 48.5 fl (35.1-43.9); Red Blood Count 4.34 M/mm3 (4.2-5.4)
[2022-06-10 19:49] LABS: Internal QC Validated? YES +Cl - CLEAR BKGD; Pregnancy, Serum, hCG Quali. NEGATIVE Negative
[2022-06-10 19:56] LABS: ALB/GLOB Ratio 0.9 RATIO (0.9-2.4); AST(SGOT) 13 U/L (15-37); Alanine Aminotransfer ALT/SGPT 20 U/L (13-56); Albumin, Serum 3.8 g/dL (3.2-5.0); Alkaline Phosphatase 54 U/L (45-117); Anion Gap 6 (5-15); BUN 12 mg/dL (7-18); BUN/Creat Ratio 17.2 RATIO (10-20); Calcium,Total 8.9 mg/dL (8.5-10.1); Chloride 108 mmol/L (98-107); EST Glomerular Filtration Rate 105 mL/min (>60); Est Glom Filt Rate - Afr Amer 127 mL/min (>60); Estimated Creatinine Clearance 84.41 ml/min; Globulin 4.2 g/dL (2.2-4.2); Glucose 100 mg/dL (74-106); Lipase 85 U/L (73-393); Sodium Level 138 mmol/L (136-145)
--- NOTE | 2022-06-10 20:05 | CT_ITS ---
STUDY: CT ABDOMEN AND PELVIS WITHOUT CONTRAST REASON FOR EXAM: Female, 32 years old. Pain RADIATION DOSAGE (If Supplied By Facility): CTDIvol = ( 6.08 ) mGy, DLP = ( 297.75 ) mGycm TECHNIQUE: Transaxial images were obtained from the dome of the diaphragm to the symphysis pubis without oral contrast, and without intravenous contrast. Sagittal and coronal images were reconstructed. Individualized dose optimization techniques were used for this CT. COMPARISON: 01/14/2022 FINDINGS: The visualized lung bases are unremarkable. The visualized portions of the heart are within normal limits. Normal liver. Normal gallbladder and extrahepatic biliary system. Normal spleen. Normal pancreas. Normal bilateral adrenal glands. Normal right kidney. No change in the 5 mm round mass of increased attenuation the upper pole left kidney likely consistent with a hyperdense cyst. Normal visualized stomach. Normal small intestine. Normal colon. The appendix is visualized and appears normal. Normal abdominal aorta. Normal inferior vena cava. Normal retroperitoneum. Normal urinary bladder. Normal abdominal wall. Normal osseous structures. CT/Abdomen/Pelvis without Cont IMPRESSION: No renal or ureteral stone. Electronically Signed: Nile Pena MD at 20:24 EDT ,
[2022-06-10 20:24] LABS: Mucous, Urine 0 SEEN /hpf (<or=2+); Red Blood Cells-Urine 0 SEEN /hpf (0-5); Squamous Epithelial Cells - UA 0 SEEN /hpf (5-10)
[2022-06-10 20:25] LABS: Color, Urine Yellow (Yellow); Glucose, Dipstick Normal (Normal); Ketone-Dipstick 5 mg/dl (Negative); Leukocyte Esterase-Dipstick 500 /ul (Negative); Nitrite-Dipstick Positive (Negative); Occult Blood-Urine 250 /ul (Negative); Protein-Dipstick 100 mg/dl (Negative); Specific Gravity, Urine 1.025 (1.002-1.030); Urine Bilirubin Dipstick Negative (Negative); Urine Clarity Cloudy (Clear); Urine Urobilinogen Normal (Normal)
[2022-06-10 20:33] LABS: Bacteria 2+ /hpf (None Seen); White Blood Cells 50-100 SEEN /hpf (0-5)
[2022-06-10 21:21] VITALS: BP 116/76; PULSE 60; RESP 16; O2SAT 100
[2022-06-10] MEDS: Ciprofloxacin 500 MG Tablet PO (21:26)
[2022-06-10 21:29] VITALS: BP 116/76; PULSE 60; RESP 16; O2SAT 100
== END 2022-06-10 21:30 | disposition home or self-care (01) ==
PROVIDERS: Emergency Provider Emergency Medicine; Visit Provider Emergency Medicine
DX: N39.0 Urinary tract infection, site not specified (principal); F17.290 Nicotine dependence, other tobacco product, uncomplicated
CPT/HCPCS: 74176; 80053; 81001; 83690; 84703; 85025; 96361; 96374; 96375; 99284; J7030; A4216; J2405

== ENCOUNTER 2022-08-22 13:44 | Emergency (ER) | payer MEDICAID, SELFPAY ==
[2022-08-22 13:45] VITALS: BP 128/104; PULSE 98; RESP 15; TEMP 37.1; O2SAT 100; BMI 23.6
[2022-08-22 14:41] LABS: Absolute Lymphocyte Count 1.27 X10^3/uL (0.83-4.51); Absolute Neutrophil Count 3.2 X10^3/uL (2.0-7.7); Basophil# 0.01 X10^3/uL; Basophil% 0.2 % (0-1); Eosinophil# 0.11 X10^3/uL; Eosinophils% 2.1 % (0-5); Hemoglobin 12.2 g/dL (12.0-15.0); Lymphocyte # 1.27 X10^3/ul (0.83-4.51); Lymphocyte % 24.3 % (19-41); Mean Corp Hgb Conc 33.9 g/dL (32-36); Mean Corpuscular Hgb 29.5 pg (27.0-32.0); Mean Platelet Vol. 9.7 fl (6.2-12.0); Monocyte# 0.62 X10^3/uL; Monocyte% 11.9 % (0-10); NRBC Flagged by Analyzer 0 % (0-5); Neutrophil # 3.21 X10^3/uL (2.7-7.7); Neutrophil % 61.3 % (47-70); Platelet Count 225 K/mm3 (150-450); RBC Distribution Width CV 13.8 % (11.6-14.6); RBC Distribution Width SD 43.7 fl (35.1-43.9); Red Blood Count 4.14 M/mm3 (4.2-5.4); White Blood Count 5.2 K/mm3 (4.4-11.0)
[2022-08-22 15:09] VITALS: BP 102/84; RESP 16
--- NOTE | 2022-08-22 15:09 | ED.VIS.FEGU ---
HPI HPI - Female History of Present Illness Chief Complaint: Vag Bld, Preg Narrative Narrative: 32-year-old female born at 26 A2 currently 10 weeks gestation presenting with vaginal bleeding. She states she had sexual intercourse with her significant other last evening and started having some spotting afterwards. This morning she states that she woke up with a staying in her boxer shorts. She had a little bit of spotting today. She does not have any pain associated with this. No abdominal pain and nausea or vomiting. Is not on any anticoagulation. Patient states he had an 8-week ultrasound which confirmed intrauterine . This was 2 weeks ago at the [facility]. She states that the OB that she has seen is Dr. Eleazar Vance. She does not have any urinary complaints. She did not have any vaginal complaints prior to this. PFSH PFSH Home Medications vit no.95-ferrous fumarate 28 mg-folic acid 800 mcg tablet 1 ea PO DAILY 01/30/20 [History Last Taken 01/16/20 09:00 1 tablet] cephalexin 500 mg capsule 500 mg PO Q12 #14 caps 08/22/22 [Rx Last Taken Unknown] ondansetron HCl 4 mg tablet 4 mg PO Q8H PRN Nausea 08/22/22 [History Last Taken Unknown] Allergy/AdvReac Type Severity Reaction Status Date / Time No Known Allergies Allergy Verified 08/22/22 13:45 Surgical History Hx of laparoscopy Social History Smoking Status: Current every day smoker tobacco type: e-cigarettes ROS ROS ED Constitutional Constitutional ED: Denies chills, fever(s) or sweats Eyes Eyes: Denies blurry vision or change in vision ENT ENT ED: Denies ear pain or sore throat Cardiovascular Cardiovascular: Denies chest pain, palpitations or racing heartbeat Respiratory/Chest Respiratory/Chest: Denies cough, dyspnea or sputum Gastrointestinal Gastrointestinal: Denies abdominal pain, constipation, diarrhea, nausea or vomiting Genitourinary Genitourinary ED: Reports other Details: Vaginal bleeding ; Denies dysuria, hematuria or urinary frequency Musculoskeletal Musculoskeletal: Denies arthralgias, myalgias or neck pain Integumentary Denies abscess, Abrasions or rash Neurologic Neurologic: Denies headache(s), paresthesias or weakness Psychiatric Psychiatric: Denies anxiety, depression, suicidal ideation or suicidal thoughts Endocrine Endocrinology: Denies polydipsia or polyuria EXAM Physical Exam Const Vital Signs: 08/22/22 13:45 08/22/22 15:09 Temperature 98.7 F Temperature Source Temporal Pulse Rate 98 Respiratory Rate 15 16 Blood Pressure 128/104 H 102/84 H Blood Pressure Mean 112 90 Pulse Ox 100 Oxygen Delivery Method Room Air General Appearance ED: Negative for pallor HEENT Reports normocephalic, head/scalp atraumatic and moist mucous membranes Eyes PERRL and EOMs intact bilaterally Neck no lymphadenopathy and supple Chest Wall inspection of chest normal and palpation of chest normal Resp normal respiratory effort and clear to auscultation bilaterally Auscultation: Negative for rales, rhonchi or wheezes Cardio regular rate and regular rhythm GI normal to inspection, nondistended, normoactive bowel sounds and non-distended Auscultation: normoactive bowel sounds Palpation: soft Narrative: Deferred Back/Spine no CVA tenderness General Back: Negative for CVA tenderness Cervical Spine: Negative for cervical spine tenderness Extremity normal to inspection Neuro oriented x3 and CN's II-XII intact bilaterally Sensorium / Orientation: alert Motor Exam: strength 5/5 throughout Psych mental status grossly normal Attitude: No agitated Skin no rashes or lesions noted and no wounds General Skin Exam: Negative for jaundice or pallor MDM MDM MDM Narrative Medical decision making narrative: 32-year-old female currently 10 weeks gestation with vaginal spotting and some bleeding overnight. She states it is improving. Blood work today shows a normal CBC. White blood cell count 5.2, hemoglobin 12.2. Blood type B+ so she does not need RhoGAM. hCG 75, 591. Transvaginal ultrasound showed a single live intrauterine at 9 weeks 4 days. heart rate 166. There is a very small subchorionic hemorrhage. Discussed with Dr. Bush who will follow up next week. She states that she started to have pain or any concerning bleeding to call the office first. She was discussed with the patient. Patient also has a urinary tract infection today which were to be treated. She started on Keflex with first dose in the ER. Is given a prescription for this. Discussed with the patient she will need light duty at work as well as to refrain from sexual intercourse until follow-up is obtained and she is cleared from a obstetric/gynecological standpoint. She acknowledged understanding. Impression: 1. Threatened miscarriage 2. UTI Lab Data Labs: Laboratory Results - last 24 hr 08/22/22 08/22/22 08/22/22 14:22 14:22 14:22 WBC 5.2 RBC 4.14 L Hgb 12.2 Hct 36.0 L MCV 87.0 MCH 29.5 MCHC 33.9 RDW Std Deviation 43.7 RDW Coeff of Shaquille 13.8 Plt Count 225 MPV 9.7 Immature Gran % (Auto) 0.200 Neut % (Auto) 61.3 Lymph % (Auto) 24.3 [place] % (Auto) 11.9 H Eos % (Auto) 2.1 Baso % (Auto) 0.2 Absolute Neuts (auto) 3.2 Absolute Lymphs (auto) 1.27 Nucleated RBC % 0 HCG, Quant 46927 H Urine Color Urine Clarity Urine pH Ur Specific [place] Urine Protein Urine Glucose (UA) Urine Ketones Urine Occult Blood Urine Nitrite Urine Bilirubin Urine Urobilinogen Ur Leukocyte Esterase Urine RBC Urine WBC Ur Squamous Epith Cells Urine Bacteria Urine Mucus Blood Type B POSITIVE 08/22/22 16:00 WBC RBC Hgb Hct MCV MCH MCHC RDW Std Deviation RDW Coeff of [place]qu[place] Plt Count MPV Immature Gran % (Auto) Neut % (Auto) Lymph % (Auto) [place] % (Auto) Eos % (Auto) Baso % (Auto) Absolute Neuts (auto) Absolute Lymphs (auto) Nucleated RBC % HCG, Quant Urine Color Yellow Urine Clarity Sl. Cloudy Urine pH 7.0 Ur Specific [place] 1.015 Urine Protein 30 H Urine Glucose (UA) Normal Urine Ketones 50 H Urine Occult Blood 150 H Urine Nitrite Positive H Urine Bilirubin 1 H Urine Urobilinogen 4 H Ur Leukocyte Esterase 100 H Urine RBC 0-5 SEEN Urine WBC 0-5 SEEN Ur Squamous Epith Cells 5-10 SEEN Urine Bacteria 2+ Urine Mucus 4+ Blood Type Radiography Diagnostic Testing: Clinical Impression(s) from Imaging Studies Obstetrics Ultrasound 08/22/22 15:18 IMPRESSION: Single live intrauterine with a small subchorionic hemorrhage. Estimated gestational age is 9 weeks and 4 days by ultrasound, concordant with clinical estimated gestational age of 10 weeks and 0 days. Electronically Signed: Orlando Kim MD at 16:41 EST , Discharge Plan Triage Chief Complaint: Vag Bld, Preg ED Provider: Andrae Del Rosario Dx/Rx/DC Orders Instructions: ED Possible Miscarriage ..., ED Cystitis Female Adult Prescriptions: New cephalexin 500 mg capsule 500 mg PO Q12 Qty: 14 0RF No Action PNV cmb#95-ferrous fumarate-FA 1 EACH tablet 1 ea PO DAILY ondansetron HCl 4 mg tablet 4 mg PO Q8H PRN (Reason: Nausea) Label Comments: Take 1 tablet by mouth every 8 hours as needed for nausea/vomiting. Stand Alone Forms: ED Work / School Excuse Primary Care Provider: Care Physician,No Primary Referrals: Jodi Bush MD [Med Staff - Active Staff] - 3-5 Days Care Physician,No Primary [Primary Care Provider] - Disposition Disposition: Home, Self Care
--- NOTE | 2022-08-22 15:18 | US_ITS ---
INDICATION: vaginal bleeding EXAMINATION: Ultrasound US OB Less Than 14 Weeks TECHNIQUE: Transabdominal pelvic ultrasound was performed. Grayscale, spectral waveform, and color flow Doppler evaluation of the adnexa. COMPARISON: None. LMP: 06/13/2022 Beta-hCG: Unknown FINDINGS: UTERUS: 9.5 x 8.5 x 8.4 cm. RIGHT OVARY: 3.5 x 1.6 x 1.6 cm. Normal. LEFT OVARY: 2.4 x 2.5 x 1.2 cm. Normal. FREE FLUID: None. INTRAUTERINE GESTATIONAL SAC(s) (size/shape): Single. 4.43 cm. YOLK SAC: 0.49 cm POLE: Identified CRL 2.71 cm. ESTIMATED GESTATION AGE: 9 weeks and 4 days. HEART MOTION: 166 bpm. PLACENTA: Not visualized due to age. SUBCHORIONIC HEMORRHAGE: 1.6 x 1.1 x 0.4 cm AMNIOTIC FLUID: Qualitatively normal. US/Init OB < 14Wks US IMPRESSION: Single live intrauterine with a small subchorionic hemorrhage. Estimated gestational age is 9 weeks and 4 days by ultrasound, concordant with clinical estimated gestational age of 10 weeks and 0 days. Electronically Signed: Orlando Kim MD at 16:41 EST ,
[2022-08-22 16:18] LABS: Color, Urine Yellow (Yellow); Glucose, Dipstick Normal (Normal); Ketone-Dipstick 50 mg/dl (Negative); Leukocyte Esterase-Dipstick 100 /ul (Negative); Nitrite-Dipstick Positive (Negative); Occult Blood-Urine 150 /ul (Negative); Protein-Dipstick 30 mg/dl (Negative); Specific Gravity, Urine 1.015 (1.002-1.030); Urine Clarity Sl. Cloudy (Clear); Urine Urobilinogen 4 mg/dl (Normal)
[2022-08-22 16:33] LABS: Urine Bilirubin Dipstick 1 mg/dL (Negative)
[2022-08-22 16:34] LABS: Mucous, Urine 4+ /hpf (<or=2+); Squamous Epithelial Cells - UA 5-10 SEEN /hpf (5-10)
[2022-08-22 16:37] LABS: Bacteria 2+ /hpf (None Seen); Red Blood Cells-Urine 0-5 SEEN /hpf (0-5); White Blood Cells 0-5 SEEN /hpf (0-5)
[2022-08-22] MEDS: Cephalexin 250 MG Capsule 500 MG PO (16:53)
== END 2022-08-22 16:59 | disposition home or self-care (01) ==
PROVIDERS: Emergency Medicine; Emergency Provider Student in an Organized Health Care Education/Training Program; Visit Provider Student in an Organized Health Care Education/Training Program
DX: O20.0 Threatened abortion (principal); O99.331 Smoking (tobacco) complicating pregnancy, first trimester; O23.41 Unspecified infection of urinary tract in pregnancy, first trimester; F17.210 Nicotine dependence, cigarettes, uncomplicated; Z3A.10 10 weeks gestation of pregnancy
CPT/HCPCS: 76801; 81001; 84702; 85025; 86900; 86901; 87086; 99284

== ENCOUNTER 2023-01-04 18:15 | Outpatient (CLI) | payer MEDICAID, SELFPAY ==
[2023-01-04 18:24] VITALS: BMI 24.3
[2023-01-04 18:29] VITALS: BP 105/65; PULSE 82; TEMP 36.4; O2SAT 100
--- NOTE | 2023-01-04 19:41 | OB.TRI.NOTE ---
HPI - General HPI Narrative KATHERINE BRYAN, is a 32 F who presents Maternal Data Information Gestational age: 29 2/7 PFSH PFSH Home Medications vit no.95-ferrous fumarate 28 mg-folic acid 800 mcg tablet 1 ea PO DAILY 01/30/20 [History Last Taken 01/16/20 09:00 1 tablet] ondansetron HCl 4 mg tablet 4 mg PO Q8H PRN Nausea 08/22/22 [History Last Taken Unknown] ropinirole 0.25 mg tablet 0.25 mg PO QHS PRN PRN restless leg 01/04/23 [History Last Taken Unknown] Allergy/AdvReac Type Severity Reaction Status Date / Time No Known Allergies Allergy Verified 01/04/23 18:59 Surgical History Hx of laparoscopy Social History Smoking Status: Current every day smoker tobacco type: e-cigarettes History Elective abortions Hx Para 3 Spontaneous abortions Hx # Term Pregnancies Ectopic pregnancies Hx # Pregnancies Multiple births # of living children NST FHR Rate Baby A Baseline: 135 Variability:: Moderate Accelerations:: None Decelerations:: None NST Reactive:: Appropriate for gestational age FHR Category:: Category I Uterine Activity:: quiet Assessment & Plan (1) High-risk in third trimester: PLAN: 32-year-old 7 para 4 here for abdominal pain and 1 episode of diarrhea. No evidence of labor. No obstetrical issues. heart tones are reassuring and appropriate for gestational age. Patient was given symptomatic measures and to follow-up in the office as scheduled or call or return as needed
== END 2023-01-04 19:25 | disposition home or self-care (01) ==
LOC: WPOUT 18:19 → WP 18:20
PROVIDERS: Referring Provider Obstetrics & Gynecology; Visit Provider Obstetrics & Gynecology
DX: O09.93 Supervision of high risk pregnancy, unspecified, third trimester (principal); O99.891 Other specified diseases and conditions complicating pregnancy; R10.9 Unspecified abdominal pain; O99.333 Smoking (tobacco) complicating pregnancy, third trimester; F17.290 Nicotine dependence, other tobacco product, uncomplicated; Z3A.29 29 weeks gestation of pregnancy
CPT/HCPCS: 59025; 59050

== ENCOUNTER 2023-02-11 02:50 | Outpatient (CLI) | payer MEDICAID, SELFPAY ==
[2023-02-11 03:07] VITALS: BP 106/70; PULSE 76; PULSE 84; TEMP 37; O2SAT 100
[2023-02-11 03:13] VITALS: BMI 25.5
--- NOTE | 2023-02-13 14:01 | OB.TRI.NOTE ---
HPI - General HPI Narrative KATHERINE BRYAN, is a 32 F who presents Maternal Data Information Final FREDERICK: 03/20/23 Gestational age: 34&5 PFSH PFSH Home Medications ropinirole 0.25 mg tablet 0.25 mg PO QHS PRN PRN restless leg 01/04/23 [History Last Taken 02/10/23] Allergy/AdvReac Type Severity Reaction Status Date / Time No Known Allergies Allergy Verified 02/11/23 03:14 Surgical History Hx of laparoscopy Social History Smoking Status: Current every day smoker tobacco type: e-cigarettes History Elective abortions Hx Para 3 Spontaneous abortions Hx # Term Pregnancies Ectopic pregnancies Hx # Pregnancies Multiple births # of living children NST FHR Rate Baby A Baseline: 125 Variability:: Moderate Accelerations:: 15 x 15 Decelerations:: None NST Reactive:: Yes Uterine Activity:: quiet Assessment & Plan (1) Threatened labor: PLAN: Reactive NST
== END 2023-02-11 03:56 | disposition home or self-care (01) ==
LOC: WPOUT 02:56 → WP 02:57
PROVIDERS: Visit Provider Obstetrics & Gynecology
DX: O47.03 False labor before 37 completed weeks of gestation, third trimester (principal); O99.333 Smoking (tobacco) complicating pregnancy, third trimester; F17.290 Nicotine dependence, other tobacco product, uncomplicated; Z3A.34 34 weeks gestation of pregnancy
CPT/HCPCS: 59025; 59050; 87086; 87088

== ENCOUNTER 2023-02-14 17:35 | Outpatient (CLI) | payer MEDICAID, SELFPAY ==
[2023-02-14 18:02] VITALS: BMI 25.3
[2023-02-14 18:05] VITALS: O2SAT 99
[2023-02-14 18:06] VITALS: BP 104/71; PULSE 100; TEMP 36.2
[2023-02-14 18:33] LABS: ROM Internal Control Test YES-OK TO RESULT pt. (Internal QC); ROM Patient Test Negative (Negative); Record Kit Lot#, ROM+ K1374
--- NOTE | 2023-02-15 07:08 | OB.TRI.NOTE ---
HPI - General General Date of Service: 02/14/23 HPI Narrative KATHERINE BRYAN, is a 32 F @ 35.1 weeks- c/o LOF PFSH PFSH Home Medications ropinirole 0.25 mg tablet 0.25 mg PO QHS PRN PRN restless leg 01/04/23 [History Last Taken 02/10/23] ferrous sulfate 02/14/23 [History Last Taken Unknown] Allergy/AdvReac Type Severity Reaction Status Date / Time No Known Allergies Allergy Verified 02/14/23 18:03 Surgical History Hx of laparoscopy Social History Smoking Status: Current every day smoker tobacco type: e-cigarettes History Elective abortions Hx Para 3 Spontaneous abortions Hx # Term Pregnancies Ectopic pregnancies Hx # Pregnancies Multiple births # of living children NST FHR Rate Baby A Baseline: 120 Variability:: Moderate Accelerations:: 15 x 15 Decelerations:: None NST Reactive:: Yes FHR Category:: Category I Uterine Activity:: irregular Assessment & Plan (1) Threatened labor: (2) High-risk in third trimester: PLAN: Plan @ 35.1 weeks, Not in labor- membranes intact ROM was negative well being established dc home
== END 2023-02-14 18:42 | disposition home or self-care (01) ==
LOC: WPOUT 17:43 → WP 17:43
PROVIDERS: Referring Provider Obstetrics & Gynecology; Visit Provider Obstetrics & Gynecology
DX: O47.03 False labor before 37 completed weeks of gestation, third trimester (principal); O99.333 Smoking (tobacco) complicating pregnancy, third trimester; F17.290 Nicotine dependence, other tobacco product, uncomplicated; Z3A.35 35 weeks gestation of pregnancy
CPT/HCPCS: 59025; 59050; 84112; 99221; G0378

== ENCOUNTER 2023-03-13 07:05 | Inpatient (IN) | payer MEDICAID, SELFPAY ==
[2023-03-13] VITALS (74 sets, daily range): BP systolic 85–145; BP diastolic 53–100; PULSE 48–107; RESP 16; TEMP 35.2–36.8; O2SAT 88–100; BMI 26.4
[2023-03-13] MEDS: Lactated Ringers 1,000 ML 50 ML IV (07:35)
[2023-03-13 08:00] LABS: Absolute Lymphocyte Count 1.66 X10^3/uL (0.83-4.51); Absolute Neutrophil Count 4.5 X10^3/uL (2.0-7.7); Basophil# 0.02 X10^3/uL; Basophil% 0.3 % (0-1); Eosinophil# 0.12 X10^3/uL; Eosinophils% 1.7 % (0-5); Hematocrit 34.1 % (37-47); Hemoglobin 11.2 g/dL (12.0-15.0); Lymphocyte # 1.66 X10^3/ul (0.83-4.51); Lymphocyte % 23.3 % (19-41); Mean Corp Hgb Conc 32.8 g/dL (32-36); Mean Corpuscular Hgb 28.8 pg (27.0-32.0); Mean Corpuscular Volume 87.7 fL (81-99); Mean Platelet Vol. 10.8 fl (6.2-12.0); Monocyte# 0.73 X10^3/uL; Monocyte% 10.3 % (0-10); NRBC Flagged by Analyzer 0 % (0-5); Neutrophil # 4.51 X10^3/uL (2.7-7.7); Neutrophil % 63.3 % (47-70); Platelet Count 196 K/mm3 (150-450); RBC Distribution Width CV 19.4 % (11.6-14.6); RBC Distribution Width SD 60.4 fl (35.1-43.9); Red Blood Count 3.89 M/mm3 (4.2-5.4); White Blood Count 7.1 K/mm3 (4.4-11.0)
[2023-03-13 08:53] LABS: Syphilis Antibodies Non-reactive
--- NOTE | 2023-03-13 09:02 | HP.PCM.OB_ITS ---
HPI - General General Date of Admission: 03/13/23 Date of Service: 03/13/23 HPI Narrative KATHERINE BRYAN, is a 32 F who presents for induction. Maternal Data Information Final FREDERICK: [birth year] Gestational age: [address] [facility] Medical History (Updated 03/13/23 @ 09:[address] Hilton Arriola MD) depression Home Medications ropinirole 0.25 mg tablet 0.25 mg PO QHS PRN PRN restless leg 01/04/23 [History Last Taken 03/05/23 22:00 0.25 mg] ferrous sulfate anemia 02/14/23 [History Last Taken Unknown] Allergy/AdvReac Type Severity Reaction Status Date / Time No Known Allergies Allergy Verified 03/13/23 07:23 Surgical History (Updated 03/13/23 @ 09:16 by Linda Gutierrez) History of gynecologic surgery Hx of laparoscopy Social History Smoking Status: Current every day smoker tobacco type: e-cigarettes History Elective abortions Hx Para 4 Spontaneous abortions Hx # Term Pregnancies Ectopic pregnancies Hx # Pregnancies Multiple births # of living children NST FHR Rate Baby A Baseline: 135 Variability:: Moderate Accelerations:: 15 x 15 Decelerations:: Prolonged (one prolonged decel just after IV start, EFM now reassuring) Uterine Activity:: Irregular Vital Signs Vital Signs Vital Signs: 03/13/23 07:26 03/13/23 07:26 03/13/23 07:26 Temperature Temperature Source Temporal Pulse Rate 82 Blood Pressure 123/77 H BP Systolic 123 BP Diastolic 77 Pulse Ox 03/13/23 07:26 03/13/23 07:39 03/13/23 07:39 Temperature 96.7 F L Temperature Source Pulse Rate 79 Blood Pressure BP Systolic BP Diastolic Pulse Ox 97 03/13/23 07:44 03/13/23 07:44 03/13/23 07:49 Temperature Temperature Source Pulse Rate 80 82 Blood Pressure BP Systolic BP Diastolic Pulse Ox 98 03/13/23 07:49 03/13/23 07:54 03/13/23 07:54 Temperature Temperature Source Pulse Rate 83 Blood Pressure BP Systolic BP Diastolic Pulse Ox 99 98 03/13/23 07:59 03/13/23 07:59 03/13/23 08:04 Temperature Temperature Source Pulse Rate 99 86 Blood Pressure BP Systolic BP Diastolic Pulse Ox 100 03/13/23 08:04 03/13/23 08:09 03/13/23 08:09 Temperature Temperature Source Pulse Rate 86 Blood Pressure BP Systolic BP Diastolic Pulse Ox 99 98 03/13/23 08:14 03/13/23 08:14 03/13/23 08:19 Temperature Temperature Source Pulse Rate 96 86 Blood Pressure BP Systolic BP Diastolic Pulse Ox 99 03/13/23 08:19 03/13/23 08:24 03/13/23 08:24 Temperature Temperature Source Pulse Rate 78 Blood Pressure BP Systolic BP Diastolic Pulse Ox 99 100 03/13/23 08:29 03/13/23 08:29 03/13/23 08:34 Temperature Temperature Source Pulse Rate 82 77 Blood Pressure BP Systolic BP Diastolic Pulse Ox 100 03/13/23 08:34 03/13/23 08:39 03/13/23 08:39 Temperature Temperature Source Pulse Rate 78 Blood Pressure BP Systolic BP Diastolic Pulse Ox 100 100 03/13/23 08:44 03/13/23 08:44 03/13/23 08:49 Temperature Temperature Source Pulse Rate 84 83 Blood Pressure BP Systolic BP Diastolic Pulse Ox 100 03/13/23 08:49 03/13/23 08:57 03/13/23 08:57 Temperature Temperature Source Temporal Pulse Rate Blood Pressure 126/89 H BP Systolic 126 BP Diastolic 89 Pulse Ox 100 03/13/23 08:57 03/13/23 08:57 Temperature 96.6 F L Temperature Source Pulse Rate 71 Blood Pressure BP Systolic BP Diastolic Pulse Ox Weight Weight: 140 lb 2 oz Body Mass Index (BMI) 26.4 Physical Exam Const alert, oriented x3 and no apparent distress Resp normal respiratory effort GI soft to palpation, non-tender and non-distended external exam normal Narrative: cvx - 3/70/-2, AROM clear fluid Labs Labs Labs: Blood Type B POSITIVE Antibody Screen NEGATIVE Hct 34.1 % (37-47) L Hgb 11.2 g/dL (12.0-15.0) L Obstetrics US Syphilis Total Ab Non-reactive Rhogam given: No See [facility] H&P Assessment & Plan (1) Anemia affecting : QUALIFIERS: Trimester: third trimester Qualified Code(s): O99.013 - Anemia complicating , third trimester COMMENT: @ 39 weeks (2) 39 weeks gestation of : (3) Encounter for elective induction of labor: PLAN: Plan Admit to L&D Induction - s/o AROM & will start pitocin if needed GBS negative EFW - Infant AGA on formal US last week as was IUGR prior. Patient with adequate pelvis. Pain - epidural as desired Routine care
[2023-03-13] MEDS: LACTATED RINGERS 500 ML 999 ML IV (10:01)
[2023-03-13 10:41] LABS: Amphetamine Urine VISTA NEGATIVE (<1000 ng/mL); Barbiturate Urine VISTA NEGATIVE (< 200 ng/mL); Benzodiazepine Urine VISTA NEGATIVE (< 200 ng/mL); Cocaine Urine VISTA NEGATIVE (< 300 ng/mL); Ecstacy Urine VISTA NEGATIVE (< 500 ng/mL); Methadone Urine VISTA NEGATIVE (< 300 ng/mL); PCP Urine VISTA NEGATIVE (< 25 ng/mL); THC Urine VISTA NEGATIVE (< 50 ng/mL); Vista UDS pH Range 6
[2023-03-13] MEDS: fentaNYL-bupivacaine (epidural) 100 ML BAG EPIDURAL (11:04)
[2023-03-13] MEDS: Oxytocin 15 Units/NS 250ml 15 UNITS/250 ML IV.SOLN 2 UNITS IV (13:14)
[2023-03-13] MEDS: Lactated Ringers 1,000 ML 200 ML IV (15:10)
--- NOTE | 2023-03-13 17:46 | OP.PCM_ITS ---
Maternal Data Information Final FREDERICK: [birth year] Gestational age: 39 weeks Vaginal Delivery Maternal Presentation Maternal Presentation: Elective Induction Type of Induction: Pitocin and Amniotomy Operative Information Date of Procedure: 03/13/23 Pre-Operative Diagnosis: Maternal request for elective induction Post-Operative Diagnosis: Same Surgery / Procedure Performed: Spontaneous Vaginal Delivery Type of Anesthesia: Epidural Estimated Blood Loss: 200ml Findings Description of Procedure: Patient prepped & draped when C/C/+2. She pushed well to deliver the head . head gently guided to allow delivery of anterior and posterior shoulders. No excess traction placed on head. Body delivered and 3VC clamped & cut in delayed fashion. Placenta delivered with gentle traction and good uterine tone obtained. Presentation: ASHER Amniotic Membrane Rupture Type: Artificial Amniotic Fluid Description: Clear Placental Delivery Description: Expressed Placenta Disposition: [facility] Specimen(s) Removed: Placenta Cord Vessel Description: 3 Vessels Cord Entanglement: Around neck x 1, loose Nuchal Cord Compression: Without compression A Gender: Female (1 minute): 8 (5 minute): 9 Delayed Cord Clamping: Yes Post Vaginal Delivery Medications Given After Delivery: IV Pitocin Episiotomy Description: None Laceration: 1st degree (midline vaginal - repaired with 3-0 vicryl) Complication Complications: None
[2023-03-13] MEDS: Oxytocin 15 Units/NS 250ml 15 UNITS/250 ML IV.SOLN 83 UNITS IV (18:01)
[2023-03-13] MEDS: Benzocaine/Lanolin/Aloe Vera 1 SPRAY EACH TOPICAL (22:23)
[2023-03-14 04:58] VITALS: BP 126/82; PULSE 81; RESP 16; TEMP 36.6
[2023-03-14 07:41] VITALS: BP 119/86; PULSE 70; RESP 16; TEMP 36.3
[2023-03-14] MEDS: Ibuprofen 600 MG Tablet PO (07:57)
--- NOTE | 2023-03-14 08:18 | PCM.PROGNOTE ---
Subjective Subjective patient seen at bedside, doing well. Patient reports good pain control. lochia mild. breast feeding. Objective Data Objective Data Vital Signs: Vital Signs Temp Pulse Resp BP Pulse Ox O2 Del Method 97.4 F L 70 16 119/86 H 100 Room Air 03/14/23 07:41 03/14/23 07:41 03/14/23 07:41 03/14/23 07:41 03/13/23 19:46 03/14/23 07:41 Oxygen Delivery Method Room Air Weight: 63.56 kg Body Mass Index (BMI) 26.4 Intake & Output: Intake and Output for Last 24 Hours 03/12/23 03/13/23 03/14/23 23:59 23:59 23:59 Intake Total 2405.06 / 2405.06 Output Total 850 / 850 500 / 500 Balance 1555.06 / 1555.06 -500 / -500 Lab / Micro Data 03/13/23 07:35 Labs: Laboratory Results - last 24 hr 03/13/23 07:35: Syphilis Total Ab Non-reactive, Blood Type B POSITIVE, Antibody Screen NEGATIVE 03/13/23 10:15: Urine Opiates Screen NEGATIVE, Urine Methadone Screen NEGATIVE, Ur Barbiturates Screen NEGATIVE, Ur Phencyclidine Scrn NEGATIVE, Ur Amphetamines Screen NEGATIVE, MDMA (Ecstasy) Screen NEGATIVE, U Benzodiazepines Scrn NEGATIVE, Urine Cocaine Screen NEGATIVE, U Cannabinoids Screen NEGATIVE, Ur Drug Screen Comment Physical Exam Const alert and oriented x3 General Appearance: cooperative HEENT normocephalic Neck General: normal visual inspection GI soft to palpation and non-distended GI Narrative: Fundus firm Extremity normal to inspection and no calf tenderness Skin no rashes or lesions noted Neuro oriented x3 and CN's II-XII intact bilaterally Psych mental status grossly normal Assessment & Plan Assessment/Plan (1) Vaginal delivery: PLAN: Plan PPD# 1 , Doing well Routine care pain mgmt ambulation
[2023-03-14 11:52] VITALS: BP 117/77; PULSE 82; RESP 16; TEMP 36.1
--- NOTE | 2023-03-14 12:22 | DCINST_ITS ---
Discharge Instructions Diet Discharge Diet: No restrictions Activity May resume sexual activity in: 6-8 weeks Dressing / Incision Call your doctor if you observe: Fever of 101 or Higher, Inability to urinate, Using more than 1 pad per hour and Uncontrolled pain Follow Up Care Please Follow Up With: Michelle Garcia MD When: 1-2 weeks post and again at 6 weeks post . [phone] Test Results: Test results from this visit will be discussed in further detail at your follow- up appointment, if applicable. Discharge Plan Admission Admit Date/Time: 03/13/23 07:05 Attending Provider: Hilton Arriola Primary Care Provider: Care Physician,Flakita Primary Discharge Orders/Prescriptions Prescriptions: New acetaminophen 500 mg Tablet 1,000 mg PO Q6H PRN PRN (Reason: Pain 1-10 Or Fever) Qty: 0 0RF ibuprofen 600 mg Tablet 600 mg PO Q6H PRN PRN (Reason: Pain Score 1-3) Qty: 0 0RF Continued ropinirole 0.25 mg Tablet 0.25 mg PO QHS PRN PRN (Reason: restless leg) Rx Instructions: administer 1-3 hours before bedtime ferrous sulfate Referrals / Follow Up: Care Physician,No Primary [Primary Care Provider] - Disposition Disposition (needs filled in before D/C Order can be placed): Home, Self Care
--- NOTE | 2023-03-14 15:44 | CASEMGMT ---
Social Work Labor and Delivery Unit Sw received social work consult due to history of substance use. Sw met with parents at bedside and completed assessment, provided support and resources. No ongoing concerns from social work perspective. Ok for mom and baby to be discharged when medically ready. Psychosocial assessment note to be entered at later date. Adore Crockett, MINT WAFER DEPOSITOR, LOG CHAIN FEEDER
[2023-03-14 16:31] VITALS: BP 121/83; PULSE 64
[2023-03-14 16:32] VITALS: BP 121/83; PULSE 64; RESP 16; TEMP 36.2
--- NOTE | 2023-03-15 10:46 | CASEMGMT ---
Social Work Assessment Labor and Delivery Unit Patient Address:[address] [place] [address] [address] [place] [address] Phone number: [phone] Date of Referral: 03/13/23 Time of Referral:? 902 Referred By: Dr. Hilton Arriola Date of Intervention: ??03/14/23 Time of Intervention:? 1419 Reason for Referral:? Substance abuse Sw completed chart review and acknowledges social work consult entered due to substance use. Sw presented to bedside and introduced self to mother of baby (MOB- Sue) and father of baby (FOB- Yuri). Sw explained reason for social work involvement at this time. Sw completed psychosocial assessment, provided education, resources and support. When appropriate sw asked FOB to step out so that sw could meet with MOB privately to complete [place] depression scale and assess for safety. FOB stepped out respectfully without issue. History obtained from: medical records, MOB and FOB Household composition:Currently residing in the home is MOB, FOB and paternal grandpa. MOB states that housing is adequate and safe. Patient's parent/guardian status:?KORTNEY is 32 year old, single female who states that she and FOB have been together for two years. 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 When meeting with MOB privately she denies concerns of domestic violence and intimate partner violence. ? Medical History: ?KORTNEY is 9 and para 4, now 5. MOB received routine care with [facility] during . baby girl was born on 03/[birth year]/23 at 39 weeks gestation via vaginal delivery. Baby girl, named Rebecca Mcclendon was born weighing 6lb 11oz and her apgars were 8 and 9 at one and five minutes of life respectfully.No concerning medical issues. KORTNEY is and reports she does have a pump for home. Educational Status:? MOB state that she graduated from high school, has some college education but did not graduate. MOB denies learning concerns or difficulties. FOB completed 11th grade, did not graduate. Financial Status: MOB and FOB are gainfully employed outside of the home. FOB works for [employer]. MOB works for [employer]. Infant Supplies:?MOB reports that she has obtained all necessary baby items including: car seat, safe sleep space, clothes, diapers and wipes. MOB states that she does have a breast pump for home. Childcare/Caregiver(s):? MOB states that she and FOB will be the primary caregivers to baby. MOB states that when they need help with childcare maternal grandma will be able to help them. Transportation:?? Both parents have drivers license and reliable transportation. No transportation barriers at this time Programs/Agencies Involved: ??KORTNEY reports that she is connected to Medicaid for insurance and food stamps. ? Children Services/Legal Issues:??KORTNEY has significant substance use history and as a result she does not have custody of her other children. MOB states that her first daughter, Brooke (11 years old) is not in her custody but she is able to see her. MOB states that her next daughter Analisa (8 years old) and Yamileth (7 years old) are in the process of getting shared parenting reinstated. KORTNEY's fourth daughter is Fernanda (3 years old) and MOB already has custody of her. Behavioral Health Issues: ??Mental Health History:?FOB denies mental health history. KORTNEY has history of depression. MOB states that she experienced following the of her last daughter, and at that time she was prescribed zoloft. MOB states that at that time her looked like panic attacks and she had depression that lingered and would not go away. Jose educated KORTNEY on signs and symptoms of baby blues and depression. MOB completed [place] Depression Scale, her score was a 7. Sw provided education and support. ?? Substance Use History:?KORTNEY explained that she does have extensive substance use history. 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 MOB states that her mother was residing in [place], and one day MOB wanted to get better so she went to stay with her mom in [facility] to get away from the people, places and things that triggered her in [place]. ? Family History:??MOB reports that both of her parents have substance use history. MOB states that her mom was addicted to prescription pain pills, but is not any longer. MOB states that her father is a functioning alcoholic. ??? Drug Screens: MOB urine screen at delivery was negative. ?? Family/Social Stressors:? No stressors identified at this time. Support Systems: MOB states that her parents are supportive and paternal grandpa Josh. Depression/Shaken Baby/Safe Sleeping: Jose educated and provided literature on signs and symptoms of baby blues and depression/ anxiety. MOB expressed understanding. Sw educated MOB on shaken baby prevention and ABCs of safe sleep. MOB expressed understanding. ?? ASSESSMENT:? KORTNEY was slightly reserved during psychosocial assessment, but answered questions asked by social work. KORTNEY connected to minimal mental health supports and was encouraged to get connected to mental health support to assist her during this period. List of local mental health resources was provided, KORTNEY was open to getting connected and said she would call to get an appointment scheduled once she reviewed the list of agencies. PLAN:? MOB and baby to be discharged when medically ready. Although KORTNEY has substance use history, her urine tox was negative, she states she has been sober for 7 years. KORTNEY has supportive family. KORTNEY also has custody of her 3 year old daughter. ?No other services requested or indicated. Adore Crockett, TRUCKING MANAGER, PROMOTIONS ASSISTANT
== END 2023-03-14 19:03 | disposition home or self-care (01) | DRG 560 ==
PROVIDERS: Admitting Provider Obstetrics & Gynecology; Referring Provider Obstetrics & Gynecology; Visit Provider Obstetrics & Gynecology
DX: O99.02 Anemia complicating childbirth (principal); Z37.0 Single live birth; F17.290 Nicotine dependence, other tobacco product, uncomplicated; O99.334 Smoking (tobacco) complicating childbirth; O69.81X0 Labor and delivery complicated by cord around neck, without compression, not applicable or unspecified; O70.0 First degree perineal laceration during delivery; Z3A.39 39 weeks gestation of pregnancy; Z79.899 Other long term (current) drug therapy; Z87.59 Personal history of other complications of pregnancy, childbirth and the puerperium
CPT/HCPCS: 59025; 59050; 80307; 85025; 86780; 86850; 86900; 86901; 99221; J7120; G0378